=== PATIENT | female | born 1960 | race Caucasian/White ===

== ENCOUNTER → 2020-07-25 10:28 | Outpatient (BNVA) | payer OTHER, SELFPAY | PROVIDERS: PCP Internal Medicine; Visit Provider Surgery ==

== ENCOUNTER → 2020-08-29 08:05 | Outpatient (BNVA) | payer OTHER, SELFPAY | PROVIDERS: PCP Internal Medicine; Visit Provider Surgery ==

== ENCOUNTER 2020-09-05 14:30 | Outpatient (RCR) | payer OTHER, SELFPAY ==
--- NOTE | 2020-06-30 14:47 | P.CONTMS_ITS ---
History of Present Illness General Data Date of Service: 06/29/2020 Reason for consult: TMS EVAL REFERRED BY DR. FERREIRA FROM [facility] History of Present Illness THE PATIENT IS A 60-YEAR-OLD FEMALE WHO IS LIVING ALONE REFERRED BY DR. DAY [facility]NTO [facility] FOR TREATMENT RESISTANT DEPRESSION. PATIENT HAS LONG HISTORY OF CLINICAL DEPRESSION WAS RECENTLY HOSPITALIZED AT [facility] IN MAY FEELING INCREASINGLY DEPRESSED AND DISCOURAGED AFTER BEING TOLD SHE WAS NOT A CANDIDATE FOR DEEP TMS. THE PATIENT IS STATUS POST RIGHT TEMPORAL LOBECTOMY FOR HISTORY OF TREATMENT RESISTANT SEIZURE DISORDER MANY YEARS AGO THERE IS A LETTER FROM HER NEUROLOGIST WHO FEELS THERE IS NO SIGNIFICANT CONTRAINDICATION TO TMS PATIENT HAS BEEN SEIZURE-FREE FOR MANY YEARS. THE PATIENT SEES DR. DAY WANT SHE WAS RECENTLY TAPERED OFF OF MIRTAZAPINE AND STARTED ON LAMOTRIGINE FOR TREATMENT RESISTANT DEPRESSION. PATIENT STATUS POST LOBECTOMY HAS HAD MILD ATTENTIONAL PROBLEMS MILD MEMORY DIFFICULTIES. SHE SHE DENIES ACTIVE SUICIDAL INTENT. SHE DOES HAVE A GOOD SUPPORT SYSTEM AND HAS A REGULAR THERAPIST THAT SHE SEES. HER CURRENT MEDICATIONS INCLUDE DULOXETINE 120 MG DAILY SHE HAS FAILED A MIRTAZAPINE TRIAL WHICH IS NOW BEING DISCONTINUED SHE IS ON LAMOTRIGINE UP TO 75 MG DAILY. SHE DOES HAVE ONGOING ANXIETY SHE HAS FELT INCREASINGLY DISCOURAGED RECENTLY SHE LOST HER STEPMOTHER WITH WHOM SHE WAS QUITE CLOSE TO SHE RECENTLY HAD A WRIST FRACTURE. THE PATIENT HAS HAD ONGOING SYMPTOMS OF ANHEDONIA DEPRESSION LACK OF MOTIVATION LETHARGY HOPELESSNESS HELPLESSNESS WITH THOUGHTS AT TIMES THAT SHE WOULD BE BETTER OFF . SIGNIFIC ANTLY INTERFERES WITH HER LIFE AND FUNCTIONING. Past Psychiatric History/Medication Trials: PATIENT RECENTLY HOSPITALIZED AT [facility] SHE SEES DR. FERREIRA. HAS HAD TRIALS OF ABILIFY HAD TO GO OFF SECONDARY TO SIDE EFFECTS NAUSEA SHE HAS BEEN ON UP TO CYMBALTA 120 MG NOT CURRENTLY EFFECTIVE ON EFFEXOR POND MADE HER ANXIOUS AND AGITATED CITALOPRAM WAS EFFECTIVE IN THE PAST AT 60 MG EVENTUALLY STOPPED WORKING SERTRALINE LOST ITS EFFICACY AND FLUOXETINE ALSO EVENTUALLY LOST ITS EFFICACY. WELLBUTRIN ALSO CAUSED AGITATION. SHE HAS HAD PAST PSYCHIATRIC HOSPITALIZATIONS SHE IS CURRENTLY IN THERAPY. [facility] Medical History (Updated 06/30/20 @ 15:11 by Bayron Grady MD) Complex partial seizures Narrative: HER PCP IS JAMARCUS PANTOJA NURSE PRACTITIONER AT THE [facility] IN [place]. 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 NO REPORTED SEIZURE ACTIVITY HAS HAD INTERMITTENT MEMORY GAPS STATUS POST LOBECTOMY. PATIENT DOES HAVE ASTHMA. ADVERSE REACTIONS TO IBUPROFEN EFFEXOR TRAMADOL AND WELLBUTRIN. HISTORY OF PSEUDOTUMOR 1995 NOT REPORTEDLY DIAGNOSED WITH THIS CURRENTLY. SEE MEDICAL NOTE FROM THE [facility] STATING THEY FEEL TMS IS NOT CONTRAINDICATED IN THIS PATIENT. Narrative: TEMPORAL LOBECTOMY Family History: PATIENT'S FATHER WAS ALCOHOLIC AND DEPRESSED MOTHER ALCOHOLIC QUESTION OF BIPOLAR DISORDER A BROTHER WHO WAS ABUSIVE. Social History: PATIENT IS BUT FROM HER FOR MANY YEARS. SHE OBTAINED A SOCIAL WORK DEGREE FROM [employer] SHE HAS TO WORK FOR [employer] [place]. SHE HAS 2 ADOPTED SONS. SHE HAS A CLOSE GROUP OF FRIENDS AND A GOOD SUPPORT SYSTEM. NOT CURRENTLY DATING. Substance History: PAST HISTORY OF ALCOHOL ABUSE MANY YEARS AGO NO CURRENT ALCOHOL OR SUBSTANCE ABUSE TIMES YEARS Trauma History: THE HISTORY OF CHILDHOOD TRAUMA Meds/Allergies Meds Narrative: ADVERSE REACTIONS NOTED TO WELLBUTRIN ALL TRAM MOTRIN Allergies Allergies Allergy/AdvReac Type Severity Reaction Status Date / Time No Known Allergies Allergy Unverified 01/06/20 14:39 Mental Status Exam Mental Status Exam Narrative: THE PATIENT HAS A A PHQ-9 OF 18 THAT SHE DESCRIBES IT IS VERY DIFFICULT APPEARS TO BE UNDER RATING MANY FOR SYMPTOMS WHICH GIVEN HER RECENT HOSPITALIZATION. PATIENT'S SPEECH IS NORMAL IN RATE AND RHYTHM SHE GAVE PERMISSION FOR TELEHEALTH APPOINTMENT. HER MOOD WAS DEPRESSED HER AFFECT CONSTRICTED SHE WAS NOT AGITATED THOUGHT PROCESS WAS LINEAR GOAL-DIRECTED SHE WAS DISCOURAGED STATED SHE HAD BEEN DISTRAUGHT AFTER THE LOSS OF HER STEPMOTHER AND BEING TOLD SHE COULD HAVE DEEP TMS. HAVE PATIENT REPORTS INTERMITTENT SELF- HARMING THOUGHTS BUT DENIES CURRENT PLAN OR INTENT STATES SHE CAN MAINTAIN HER SAFETY AND DOES HAVE SOME FUTURE PLANS. SHE REPORTS LOW ENERGY DIFFICULTY WITH CONCENTRATION ATTENTION FUNCTIONING. NO HALLUCINATIONS OR DELUSIONAL MATERIAL GOOD INSIGHT Assessment & Plan Assessment & Plan (1) Major depressive disorder, recurrent severe without psychotic features: Status: Acute Code(s): F33.2 - Major depressive disorder, recurrent severe without psychotic features Recommendations: PATIENT DENIES ANY HISTORY OF MANIC SYMPTOMS NO CONTRAINDICATIONS TO TMS FAR NO METALLIC OBJECTS OUTSIDE OF A KNEE REPLACEMENT PAST HISTORY OF SOME COMPLEX SEIZURES STABLE TIMES YEARS NOTE APPRECIATED FROM THE [facility] ADVISING THAT PATIENT WOULD BE A GOOD CANDIDATE FOR LEFT-SIDED TMS THERE ARE ALSO STUDIES THAT LOW FREQUENCY TMS ON THE SIDE OF THE LESION CAN ACTUALLY DECREASE EPILEPTIFORM ACTIVITY. THE PATIENT MEETS CRITERIA BECAUSE OF MULTIPLE FAILED TRIALS INCLUDING ABILIFY DULOXETINE UP TO 120 MG MIRTAZAPINE UP TO 30 MG HAS HAD EXTENSIVE AND ONGOING PSYCHOTHERAPY AND MULTIPLE OTHER FAILED ANTIDEPRESSANT TRIALS. RISKS BENEFITS ALTERNATIVES REVIEWED WITH PATIENT I DID REVIEW WITH THE PATIENT SHE IS AT SOME INCREASED THE RADICAL RISK OF A SEIZURE WITH TMS LITERATURE REVIEWED WILL USE LEFT-SIDED PROTOCOL GIVEN THE PATIENT'S SEVERITY OF DEPRESSION HISTORY OF TREATMENT RESISTANCE TO MEDICATION SHE IS A CLEAR CANDIDATE AND DOES UNDERSTAND THE RISKS BENEFITS AND ALTERNATIVES Greater than 50% of the session was spent on counseling and/or coordination of care
--- NOTE | 2020-07-07 23:41 | P.PNPS_ITS ---
TMS Daily Progress Note Daily TMS Progress Note Date of Service: 07/07/20 Week #: 1 Treatment #(05-20): 2 PHQ-9 Pre-Treatment (05-17): 18 PHQ-9 Most Recent (05-17): 18 Reviewed: TMS Tech Note Reviewed Verification: I have reviewed the TMS Medical Records Specialist Note and agree with the contents. The patient remains a candidate to continue TMS treatment per pro tocol.
--- NOTE | 2020-07-10 22:30 | P.PNPS_ITS ---
TMS Daily Progress Note Daily TMS Progress Note Date of Service: 07/10/20 Week #: 1 Treatment #(05-20): 3 PHQ-9 Pre-Treatment (05-17): 18 PHQ-9 Most Recent (05-17): 18 Reviewed: TMS Tech Note Reviewed Verification: I have reviewed the TMS Medical Assistant Secretary Note and agree with the contents. The patient remains a candidate to continue TMS treatment per pro tocol.
--- NOTE | 2020-07-11 22:06 | P.PNPS_ITS ---
TMS Daily Progress Note Daily TMS Progress Note Date of Service: 07/11/20 Week #: 1 Treatment #(05-20): 4 PHQ-9 Pre-Treatment (05-17): 18 PHQ-9 Most Recent (05-17): 18 Reviewed: TMS Tech Note Reviewed Verification: I have reviewed the TMS Power Plant Operations Manager Note and agree with the contents. The patient remains a candidate to continue TMS treatment per pro tocol.
--- NOTE | 2020-07-11 22:38 | HO.TMSDAILY2 ---
TMS Daily Progress Note Daily TMS Progress Note Date of Service: 07/11/20 Week #: 1 Treatment #(05-20): 3 PHQ-9 Pre-Treatment (05-17): 18 PHQ-9 Most Recent (05-17): 18 Reviewed: TMS Tech Note Reviewed Verification: I have reviewed the TMS Continuous Loft Operator Note and agree with the contents. The patient remains a candidate to continue TMS treatment per protocol.
--- NOTE | 2020-07-13 22:05 | P.PNPS_ITS ---
TMS Daily Progress Note Daily TMS Progress Note Date of Service: 07/12/20 Week #: 1 Treatment #(05-20): 5 PHQ-9 Pre-Treatment (05-17): 18 PHQ-9 Most Recent (05-17): 18 Reviewed: TMS Tech Note Reviewed Verification: I have reviewed the TMS Pre Press Proofer Note and agree with the contents. The patient remains a candidate to continue TMS treatment per pro tocol.
--- NOTE | 2020-07-13 22:06 | P.PNPS_ITS ---
TMS Daily Progress Note Daily TMS Progress Note Date of Service: 07/13/20 Week #: 2 Treatment #(05-20): 6 PHQ-9 Pre-Treatment (05-17): 18 PHQ-9 Most Recent (05-17): 18 Reviewed: TMS Tech Note Reviewed Verification: I have reviewed the TMS Senior Field Engineer Note and agree with the contents. The patient remains a candidate to continue TMS treatment per pro tocol.
--- NOTE | 2020-07-14 21:50 | P.PNPS_ITS ---
TMS Daily Progress Note Daily TMS Progress Note Date of Service: 07/14/20 Week #: 7 Treatment #(05-20): 7 PHQ-9 Pre-Treatment (05-17): 18 PHQ-9 Most Recent (05-17): 18 Reviewed: TMS Tech Note Reviewed Verification: I have reviewed the TMS Occupational Safety Specialist Note and agree with the contents. The patient remains a candidate to continue TMS treatment per pro tocol.
--- NOTE | 2020-07-17 22:14 | P.PNPS_ITS ---
TMS Daily Progress Note Daily TMS Progress Note Date of Service: 07/17/20 Week #: 2 Treatment #(05-20): 8 PHQ-9 Pre-Treatment (05-17): 18 PHQ-9 Most Recent (05-17): 18 Reviewed: TMS Tech Note Reviewed Verification: I have reviewed the TMS Animal Pathology Teacher Note and agree with the contents. The patient remains a candidate to continue TMS treatment per pro tocol.
--- NOTE | 2020-07-18 22:15 | HO.TMSDAILY2 ---
TMS Daily Progress Note Daily TMS Progress Note Date of Service: 07/18/20 Week #: 2 Treatment #(05-20): 9 PHQ-9 Pre-Treatment (05-17): 18 PHQ-9 Most Recent (05-17): 18 Reviewed: TMS Tech Note Reviewed Verification: I have reviewed the TMS Framework Developer Note and agree with the contents. The patient remains a candidate to continue TMS treatment per protocol.
--- NOTE | 2020-07-19 22:46 | P.PNPS_ITS ---
TMS Daily Progress Note Daily TMS Progress Note Date of Service: 07/19/20 Week #: 2 Treatment #(05-20): 10 PHQ-9 Pre-Treatment (05-17): 18 PHQ-9 Most Recent (05-17): 18 Reviewed: TMS Tech Note Reviewed Verification: I have reviewed the TMS Pigment Making Supervisor Note and agree with the contents. The patient remains a candidate to continue TMS treatment per pr otocol.
--- NOTE | 2020-07-20 21:15 | P.PNPS_ITS ---
TMS Daily Progress Note Daily TMS Progress Note Date of Service: 07/20/20 Week #: 3 Treatment #(05-20): 11 PHQ-9 Pre-Treatment (05-17): 18 PHQ-9 Most Recent (05-17): 18 Reviewed: TMS Tech Note Reviewed Verification: I have reviewed the TMS Paper Tube Machine Operator Note and agree with the contents. The patient remains a candidate to continue TMS treatment per pr otocol.
--- NOTE | 2020-07-21 22:24 | HO.TMSDAILY2 ---
TMS Daily Progress Note Daily TMS Progress Note Date of Service: 07/21/20 Week #: 3 Treatment #(05-20): 12 PHQ-9 Pre-Treatment (05-17): 18 PHQ-9 Most Recent (05-17): 18 Reviewed: TMS Tech Note Reviewed Verification: I have reviewed the TMS Engineering And Development Director Note and agree with the contents. The patient remains a candidate to continue TMS treatment per protocol.
--- NOTE | 2020-07-24 21:05 | HO.TMSDAILY2 ---
TMS Daily Progress Note Daily TMS Progress Note Date of Service: 07/24/20 Week #: 3 Treatment #(05-20): 13 PHQ-9 Pre-Treatment (05-17): 18 PHQ-9 Most Recent (05-17): 18 Reviewed: TMS Tech Note Reviewed Verification: I have reviewed the TMS Tennis Camp Instructor Note and agree with the contents. The patient remains a candidate to continue TMS treatment per protocol.
--- NOTE | 2020-07-26 22:53 | P.PNPS_ITS ---
TMS Daily Progress Note Daily TMS Progress Note Date of Service: 07/26/20 Week #: 3 Treatment #(05-20): 15 PHQ-9 Pre-Treatment (05-17): 18 PHQ-9 Most Recent (05-17): 18 Reviewed: TMS Tech Note Reviewed Verification: I have reviewed the TMS Operator Maintainer Note and agree with the contents. The patient remains a candidate to continue TMS treatment per p mike.
--- NOTE | 2020-07-27 22:52 | P.PNPS_ITS ---
TMS Daily Progress Note Daily TMS Progress Note Date of Service: 07/27/20 Week #: 4 Treatment #(05-20): 16 PHQ-9 Pre-Treatment (05-17): 18 PHQ-9 Most Recent (05-17): 18 Reviewed: TMS Tech Note Reviewed Verification: I have reviewed the TMS Hazardous Materials Tanker Driver Note and agree with the contents. The patient remains a candidate to continue TMS treatment per pr otocol.
--- NOTE | 2020-07-28 10:03 | HO.TMSDAILY2 ---
TMS Daily Progress Note Daily TMS Progress Note Date of Service: 07/28/20 Week #: 4 Treatment #(05-20): 17 PHQ-9 Pre-Treatment (05-17): 18 PHQ-9 Most Recent (05-17): 18 Reviewed: TMS Tech Note Reviewed Verification: I have reviewed the TMS Countersinker Balance Screw Hole Note and agree with the contents. The patient remains a candidate to continue TMS treatment per protocol.
--- NOTE | 2020-07-31 21:36 | P.PNPS_ITS ---
TMS Daily Progress Note Daily TMS Progress Note Date of Service: 07/31/20 Week #: 4 Treatment #(05-20): 18 PHQ-9 Pre-Treatment (05-17): 18 PHQ-9 Most Recent (05-17): 18 Reviewed: TMS Tech Note Reviewed Verification: I have reviewed the TMS Supervisor Concrete Pipe Plant Note and agree with the contents. The patient remains a candidate to continue TMS treatment per p mike.
--- NOTE | 2020-08-01 22:01 | HO.TMSDAILY2 ---
TMS Daily Progress Note Daily TMS Progress Note Date of Service: 08/01/20 Week #: 4 Treatment #(05-20): 19 PHQ-9 Pre-Treatment (05-17): 18 PHQ-9 Most Recent (05-17): 18 Reviewed: TMS Tech Note Reviewed Verification: I have reviewed the TMS Technical Information Specialist Note and agree with the contents. The patient remains a candidate to continue TMS treatment per protocol.
--- NOTE | 2020-08-02 22:28 | P.PNPS_ITS ---
TMS Daily Progress Note Daily TMS Progress Note Date of Service: 08/02/20 Week #: 5 Treatment #(05-20): 20 PHQ-9 Pre-Treatment (05-17): 18 PHQ-9 Most Recent (05-17): 18 Reviewed: TMS Tech Note Reviewed Verification: I have reviewed the TMS Signal System Testing Maintainer Note and agree with the contents. The patient remains a candidate to continue TMS treatment per p mike.
--- NOTE | 2020-08-03 21:47 | HO.TMSDAILY2 ---
TMS Daily Progress Note Daily TMS Progress Note Date of Service: 08/03/20 Week #: 5 Treatment #(05-20): 21 PHQ-9 Pre-Treatment (05-17): 18 PHQ-9 Most Recent (05-17): 18 Reviewed: TMS Tech Note Reviewed Verification: I have reviewed the TMS Cook Cashier Food Prep Note and agree with the contents. The patient remains a candidate to continue TMS treatment per protocol.
--- NOTE | 2020-08-04 22:03 | HO.TMSDAILY2 ---
TMS Daily Progress Note Daily TMS Progress Note Date of Service: 08/04/20 Week #: 5 Treatment #(05-20): 22 PHQ-9 Pre-Treatment (05-17): 18 PHQ-9 Most Recent (05-17): 18 Reviewed: TMS Tech Note Reviewed Verification: I have reviewed the TMS Balance Assembler Note and agree with the contents. The patient remains a candidate to continue TMS treatment per protocol.
--- NOTE | 2020-08-08 15:25 | HO.TMSDAILY2 ---
TMS Daily Progress Note Daily TMS Progress Note Date of Service: 08/08/20 Week #: 5 Treatment #(05-20): 23 PHQ-9 Pre-Treatment (05-17): 18 PHQ-9 Most Recent (05-17): 18 Reviewed: TMS Tech Note Reviewed Verification: I have reviewed the TMS Biochemistry Technician Note and agree with the contents. The patient remains a candidate to continue TMS treatment per protocol.
--- NOTE | 2020-08-09 23:04 | HO.TMSDAILY2 ---
TMS Daily Progress Note Daily TMS Progress Note Date of Service: 08/09/20 Week #: 5 Treatment #(05-20): 24 PHQ-9 Pre-Treatment (05-17): 18 PHQ-9 Most Recent (05-17): 18 Reviewed: TMS Tech Note Reviewed Verification: I have reviewed the TMS Consulting Networking Engineer Note and agree with the contents. The patient remains a candidate to continue TMS treatment per protocol.
--- NOTE | 2020-08-10 23:12 | HO.TMSDAILY2 ---
TMS Daily Progress Note Daily TMS Progress Note Date of Service: 08/10/20 Week #: 5 Treatment #(05-20): 25 PHQ-9 Pre-Treatment (05-17): 18 PHQ-9 Most Recent (05-17): 18 Reviewed: TMS Tech Note Reviewed Verification: I have reviewed the TMS Paper Roll Machine Operator Note and agree with the contents. The patient remains a candidate to continue TMS treatment per protocol.
--- NOTE | 2020-08-21 22:34 | HO.TMSDAILY2 ---
TMS Daily Progress Note Daily TMS Progress Note Date of Service: 08/21/20 Week #: 6 Treatment #(05-20): 27 PHQ-9 Pre-Treatment (05-17): 18 PHQ-9 Most Recent (05-17): 18 Reviewed: TMS Tech Note Reviewed Verification: I have reviewed the TMS Biological Science Technician Note and agree with the contents. The patient remains a candidate to continue TMS treatment per protocol.
--- NOTE | 2020-08-22 22:35 | P.PNPS_ITS ---
TMS Daily Progress Note Daily TMS Progress Note Date of Service: 08/22/20 Week #: 6 Treatment #(05-20): 28 PHQ-9 Pre-Treatment (05-17): 18 PHQ-9 Most Recent (05-17): 18 Reviewed: TMS Tech Note Reviewed Verification: I have reviewed the TMS Manager Of Compensation Note and agree with the contents. The patient remains a candidate to continue TMS treatment per p mike.
--- NOTE | 2020-08-23 21:15 | HO.TMSDAILY2 ---
TMS Daily Progress Note Daily TMS Progress Note Date of Service: 08/23/20 Week #: 6 Treatment #(05-20): 29 PHQ-9 Pre-Treatment (05-17): 18 PHQ-9 Most Recent (05-17): 18 Reviewed: TMS Tech Note Reviewed Verification: I have reviewed the TMS Order Packer Or Packager Note and agree with the contents. The patient remains a candidate to continue TMS treatment per protocol.
--- NOTE | 2020-08-24 21:25 | HO.TMSDAILY2 ---
TMS Daily Progress Note Daily TMS Progress Note Date of Service: 08/24/20 Week #: 6 Treatment #(05-20): 30 PHQ-9 Pre-Treatment (05-17): 18 PHQ-9 Most Recent (05-17): 18 Reviewed: TMS Tech Note Reviewed Verification: I have reviewed the TMS Real Estate Financial Analyst Note and agree with the contents. The patient remains a candidate to continue TMS treatment per protocol.
--- NOTE | 2020-08-25 22:20 | HO.TMSDAILY2 ---
TMS Daily Progress Note Daily TMS Progress Note Date of Service: 08/25/20 Week #: 6 Treatment #(05-20): 31 PHQ-9 Pre-Treatment (05-17): 18 PHQ-9 Most Recent (05-17): 18 Reviewed: TMS Tech Note Reviewed Verification: I have reviewed the TMS Market Research Senior Project Manager Note and agree with the contents. The patient remains a candidate to continue TMS treatment per protocol.
--- NOTE | 2020-08-28 22:09 | HO.TMSDAILY2 ---
TMS Daily Progress Note Daily TMS Progress Note Date of Service: 08/28/20 Week #: 7 Treatment #(05-20): 32 PHQ-9 Pre-Treatment (05-17): 18 PHQ-9 Most Recent (05-17): 18 Reviewed: TMS Tech Note Reviewed Verification: I have reviewed the TMS Supervisor Kosher Dietary Service Note and agree with the contents. The patient remains a candidate to continue TMS treatment per protocol.
--- NOTE | 2020-08-29 22:01 | P.PNPS_ITS ---
TMS Daily Progress Note Daily TMS Progress Note Date of Service: 08/29/20 Week #: 7 Treatment #(05-20): 33 PHQ-9 Pre-Treatment (05-17): 18 PHQ-9 Most Recent (05-17): 18 Reviewed: TMS Tech Note Reviewed Verification: I have reviewed the TMS Certified Dental Assistant Note and agree with the contents. The patient remains a candidate to continue TMS treatment per p mike.
--- NOTE | 2020-08-29 22:03 | HO.TMSDAILY2 ---
TMS Daily Progress Note Daily TMS Progress Note Date of Service: 08/29/20 Week #: 7 Treatment #(05-20): 33 PHQ-9 Pre-Treatment (05-17): 18 PHQ-9 Most Recent (05-17): 18 Reviewed: TMS Tech Note Reviewed Verification: I have reviewed the TMS Media Planner / Buyer Note and agree with the contents. The patient remains a candidate to continue TMS treatment per protocol.
--- NOTE | 2020-08-31 21:40 | P.PNPS_ITS ---
TMS Daily Progress Note Daily TMS Progress Note Date of Service: 08/31/20 Week #: 8 Treatment #(05-20): 35 PHQ-9 Pre-Treatment (05-17): 18 PHQ-9 Most Recent (05-17): 18 Reviewed: TMS Tech Note Reviewed Verification: I have reviewed the TMS Desizing Machine Operator Note and agree with the contents. The patient remains a candidate to continue TMS treatment per p mike.
--- NOTE | 2020-09-05 22:47 | HO.TMSDAILY2 ---
TMS Daily Progress Note Daily TMS Progress Note Date of Service: 09/05/20 Week #: 8 Treatment #(05-20): 36 PHQ-9 Pre-Treatment (05-17): 18 PHQ-9 Most Recent (05-17): 18 Reviewed: TMS Tech Note Reviewed Verification: I have reviewed the TMS Stitcher Tape Controlled Machine Note and agree with the contents. The patient remains a candidate to continue TMS treatment per protocol.
== END 2020-09-05 15:05 | disposition home or self-care (01) ==
LOC: HO.PTMS 14:30
PROVIDERS: Visit Provider Psychiatry & Neurology Psychiatry
DX: F33.2 Major depressive disorder, recurrent severe without psychotic features (principal)
CPT/HCPCS: 90867; 90868

== ENCOUNTER → 2020-09-12 08:09 | Outpatient (BNVA) | payer OTHER, SELFPAY | PROVIDERS: PCP Internal Medicine; Visit Provider Dietitian, Registered | DX: E66.01 Morbid (severe) obesity due to excess calories (principal); Z68.41 Body mass index [BMI] 40.0-44.9, adult | CPT/HCPCS: 97802 ==

== ENCOUNTER 2022-02-19 13:05 | Inpatient (IN) | payer OTHER, SELFPAY ==
--- NOTE | 2022-02-19 | ECG_ITS ---
Test Reason : QT change Blood Pressure : / mmHG Vent. Rate : 089 BPM Atrial Rate : 089 BPM P-R Int : 154 ms QRS Dur : 088 ms QT Int : 378 ms P-R-T Axes : 035 009 015 degrees QTc Int : 459 ms Normal sinus rhythm Low voltage QRS Intra-ventricular conduction delay Nonspecific T wave abnormality Anterior leads Abnormal ECG No previous ECGs available Referred By: Meaghan New Electronically Signed By:ZBIGNIEW NOGUEIRA MD
[2022-02-19 13:07] VITALS: BP 111/69; PULSE 111; RESP 19; TEMP 36.6; O2SAT 99; BMI 38.7
--- NOTE | 2022-02-19 13:39 | ED.PSYCH ---
HPI - Psych General Chief Complaint: Psychiatric Symptoms Stated Complaint: mental health emergency Time Seen by Provider: 02/19/22 13:34 Source: patient Mode of arrival: ambulatory Limitations: no limitations History of Present Illness HPI Narrative: 62 yo female with hx of depression and HTN here with c/o worsening SI was seen at [facility] on voluntary basis this week and was a bed search but no beds available. Sent home as she was voluntary. She comes back with SI wanting to talk to our crisis team. MD complaint: suicidal ideation and feels depressed Onset (ago): week(s) Duration: getting worse History of same: Yes Relieving factors: none Exacerbating factors: none Context: other Associated psychiatric symptoms: depression and suicidal ideation Associated symptoms: denies other symptoms Treatments prior to arrival: none If self harm: admits thoughts of self harm Related Data Home Medications Medication Instructions Recorded Confirmed duloxetine 60 mg capsule,delayed 60 mg PO DAILY 07/25/20 08/29/20 release ergocalciferol (vitamin D2) 1,250 1,250 mcg PO Q2W 07/25/20 08/29/20 mcg (50,000 unit) capsule fluticasone propionate 220 2 puff PO BID 07/25/20 08/29/20 mcg/actuation HFA aerosol inhaler lamotrigine 100 mg tablet 0 mg PO 07/25/20 08/29/20 losartan 50 mg tablet 50 mg PO BID 07/25/20 08/29/20 montelukast 10 mg tablet 10 mg PO DAILY 07/25/20 08/29/20 omeprazole 20 mg capsule,delayed 20 mg PO DAILY 07/25/20 08/29/20 release pravastatin 40 mg tablet 40 mg PO DAILY 07/25/20 08/29/20 Allergies Allergy/AdvReac Type Severity Reaction Status Date / Time ibuprofen Allergy Severe Anaphylaxis Verified 02/19/22 13:11 prednisone Allergy Severe Anaphylaxis Verified 02/19/22 13:11 sertraline [From Zoloft] Allergy Severe Anaphylaxis Verified 02/19/22 13:11 tramadol Allergy Severe Anaphylaxis Verified 02/19/22 13:11 venlafaxine [From Effexor] Allergy Severe Anaphylaxis Verified 02/19/22 13:11 Review of Systems Review of Systems: Constitutional : No Fever, No Chills ENT/Mouth : No Ear Pain, No Nasal Congestion, No sore throat Eyes: No Eye Pain, No Swelling, No Redness Cardiovascular : No Chest Pain, No SOB Respiratory : No Cough, No Sputum, No Dyspnea Gastrointestinal : No Nausea, No Vomiting, No Diarrhea, No Hematochezia, No Melena Genitourinary : No Dysuria, No Urinary Frequency, No Hematuria Musculoskeletal : No Myalgias Skin : No Skin Lesions, No rash Neuro : No Weakness, No Numbness, No Paresthesias, No Dizziness, No Headache Psych : positive Anxiety, positive Depression, positive SI no HI Heme/Lymph: No Lymphadenopathy Endocrine : No Polyuria, No Polydipsia All other systems reviewed and are negative [facility] Past Medical History Attestation statement: The following information was validated with the patient. Medical History Asthma Diverticulosis HTN (hypertension) Hypercholesterolemia Major depressive disorder Vocal cord dysfunction Surgical History H/O brain surgery History of biopsy of temporal artery History of colostomy History of colostomy reversal History of rectal surgery History of tonsillectomy History of total hysterectomy Hx of colonoscopy Family History Family History Mother No problems noted. Father No problems noted. Sister No problems noted. Sister No problems noted. Brother No problems noted. Social History Social History (Updated 02/19/22 @ 13:39 by Meaghan New DO) Alcohol intake: former Patient Tobacco Use Status: Never used Tobacco Advance Directives: No Physical Exam Vital Signs: Vital Signs: Last Vital Signs Temp 98 F 02/19/22 13:07 Pulse 111 H 02/19/22 13:07 Resp 19 02/19/22 13:07 BP 111/69 02/19/22 13:07 Pulse Ox 99 02/19/22 13:07 O2 Del Method 02/19/22 13:07 BMI result Body Mass Index 38.7 Appearance: Alert. Oriented X3. No acute distress. Eyes: Pupils equal, round and reactive to light. ENT: Pharynx normal. Neck: Normal inspection. Neck supple. CVS: Normal heart rate and rhythm. Pulses normal. Respiratory: No respiratory distress. Breath sounds normal. Abdomen: Soft and nontender. Skin: Skin warm and dry. Normal skin color. Normal skin turgor. Extremities: No lower extremity edema. No calf ttp Neuro: Oriented X 3. No motor deficit. No sensory deficit. CN2-12 intact Course Course Course Narrative: Physician observation started at 155pm. Patient placed in physician observation because the patient needed more time for CARE team to assess the need for psych admission. At the time observation was started the patient's vitals were stable, patient is alert and oriented, Neuro: nonfocal, CV RRR, Lungs clear MDM - Psych MDM Narrative Medical decision making narrative: 62 yo female with depression and HTN here with c/o SI wants to talk to crisis at tis time will need labs and CARE team. No medical complaints Lab Data Result diagrams: 02/19/22 13:54 02/19/22 13:54 Labs: Lab Results 02/19/22 02/19/22 02/19/22 Range/Units 13:54 13:54 13:54 WBC 6.3 (4.8-10.8) X10*3/uL RBC 4.62 (4.20-5.50) X10*6/uL Hgb 13.4 (12.0-16.0) g/dl Hct 39.8 (37.0-47.0) % MCV 86.1 (80.0-98.0) fL MCH 29.0 (27.0-33.0) pg MCHC 33.7 (31.0-35.0) g/dl RDW 13.2 (11.0-16.0) % Plt Count 264 (160-400) X10*3/uL MPV 8.6 L (9.4-12.3) fL Immature Gran % (Auto) 0.5 H (0.0-0.4) % Neut % (Auto) 68.3 (45-73) % Lymph % (Auto) 22.8 (20-40) % [place] % (Auto) 7.1 (2-11) % Eos % (Auto) 1.0 (0-4) % Baso % (Auto) 0.3 (0-2) % Lymph # (Auto) 1.4 (1.2-4.9) X10*3/uL [place] # (Auto) 0.5 (0.1-1.2) X10*3/uL Eos # (Auto) 0.1 (0.0-0.4) X10*3/uL Baso # (Auto) 0.0 (0.0-0.2) X10*3/uL Abs Immat Gran (auto) 0.03 (0.00-0.03) X10*3/uL Absolute Neuts (auto) 4.3 (2.0-8.3) x10*3/uL Absolute Nucleated RBC 0.000 (0.0-0.012) X10*3/uL Nucleated RBC % (auto) 0.0 (0.0-0.2) /100WBC Sodium 141 (135-145) mmol/L Potassium 3.9 (3.3-5.1) mmol/L Chloride 102 (96-108) mmol/L Carbon Dioxide 27 (22-29) mmol/L Anion Gap 16 (12-20) BUN 11 (9-16) mg/dL Creatinine 0.82 (0.5-1.4) mg/dL Estim Creat Clear Calc 70.0 Estimated GFR > 60 Random Glucose 135 H (60-115) mg/dL Calcium 9.5 (8.4-10.2) mg/dL Total Bilirubin 1.2 H (0.0-1.0) mg/dL Direct Bilirubin 0.4 (0.0-0.5) mg/dL AST 13 (5-31) U/L ALT 12 (0-31) U/L Alkaline Phosphatase 55 (39-117) U/L Total Protein 6.7 (6.5-8.0) g/dL Albumin 4.3 (3.5-5.0) g/dL Urine Color Urine Appearance Urine pH (5.0-9.0) Ur Specific [place] (1.005-1.025) Urine Protein (Neg-Trace) mg/dL Urine Glucose (UA) (Negative) mg/dL Urine Ketones (Negative) mg/dL Urine Blood (Negative) Urine Nitrite (Negative) Ur Leukocyte Esterase (Negative) Urine Opiates Screen (Not Detect) Urine Fentanyl Screen (Not Detect) Ur Barbiturates Screen (Not Detect) Ur Phencyclidine Scrn (Not Detect) Ur Amphetamines Screen (Not Detect) U Benzodiazepines Scrn (Not Detect) Urine Cocaine Screen (Not Detect) U Marijuana (THC) Screen (Not Detect) COVID-19 (GABRIEL) Negative (Negative) COVID-19 Clin Com See Note 02/19/22 02/19/22 Range/Units 13:54 13:54 WBC (4.8-10.8) X10*3/uL RBC (4.20-5.50) X10*6/uL Hgb (12.0-16.0) g/dl Hct (37.0-47.0) % MCV (80.0-98.0) fL MCH (27.0-33.0) pg MCHC (31.0-35.0) g/dl RDW (11.0-16.0) % Plt Count (160-400) X10*3/uL MPV (9.4-12.3) fL Immature Gran % (Auto) (0.0-0.4) % Neut % (Auto) (45-73) % Lymph % (Auto) (20-40) % [place] % (Auto) (2-11) % Eos % (Auto) (0-4) % Baso % (Auto) (0-2) % Lymph # (Auto) (1.2-4.9) X10*3/uL [place] # (Auto) (0.1-1.2) X10*3/uL Eos # (Auto) (0.0-0.4) X10*3/uL Baso # (Auto) (0.0-0.2) X10*3/uL Abs Immat Gran (auto) (0.00-0.03) X10*3/uL Absolute Neuts (auto) (2.0-8.3) x10*3/uL Absolute Nucleated RBC (0.0-0.012) X10*3/uL Nucleated RBC % (auto) (0.0-0.2) /100WBC Sodium (135-145) mmol/L Potassium (3.3-5.1) mmol/L Chloride (96-108) mmol/L Carbon Dioxide (22-29) mmol/L Anion Gap (12-20) BUN (9-16) mg/dL Creatinine (0.5-1.4) mg/dL Estim Creat Clear Calc Estimated GFR Random Glucose (60-115) mg/dL Calcium (8.4-10.2) mg/dL Total Bilirubin (0.0-1.0) mg/dL Direct Bilirubin (0.0-0.5) mg/dL AST (5-31) U/L ALT (0-31) U/L Alkaline Phosphatase (39-117) U/L Total Protein (6.5-8.0) g/dL Albumin (3.5-5.0) g/dL Urine Color Yellow Urine Appearance Clear Urine pH 7.5 (5.0-9.0) Ur Specific [place] <= 1.005 (1.005-1.025) Urine Protein Negative (Neg-Trace) mg/dL Urine Glucose (UA) Negative (Negative) mg/dL Urine Ketones Negative (Negative) mg/dL Urine Blood Negative (Negative) Urine Nitrite Negative (Negative) Ur Leukocyte Esterase Negative (Negative) Urine Opiates Screen Not Detected (Not Detect) Urine Fentanyl Screen Not Detected (Not Detect) Ur Barbiturates Screen Not Detected (Not Detect) Ur Phencyclidine Scrn Not Detected (Not Detect) Ur Amphetamines Screen Not Detected (Not Detect) U Benzodiazepines Scrn Not Detected (Not Detect) Urine Cocaine Screen Not Detected (Not Detect) U Marijuana (THC) Screen Not Detected (Not Detect) COVID-19 (GABRIEL) (Negative) COVID-19 Clin Com Discharge Plan Discharge Clinical Impression: Depression Patient Disposition: Still a Patient Prescriptions: No Action Flovent HFA 220 mcg/actuation HFA aerosol inhaler 2 puff PO BID lamotrigine 100 mg tablet 0 mg PO ergocalciferol (vitamin D2) 1,250 mcg (50,000 unit) capsule 1,250 mcg PO Q2W duloxetine 60 mg capsule,delayed release(DR/EC) 60 mg PO DAILY montelukast 10 mg tablet 10 mg PO DAILY omeprazole 20 mg capsule,delayed release(DR/EC) 20 mg PO DAILY pravastatin 40 mg tablet 40 mg PO DAILY losartan 50 mg tablet 50 mg PO BID
[2022-02-19 13:58] LABS: MANUAL DIFF FLAG NO
[2022-02-19 14:00] LABS: Basophils Percent Auto 0.3 % (0-2); Eosinophils Absolute Auto 0.1 X10*3/uL (0.0-0.4); Hematocrit 39.8 % (37.0-47.0); Hemoglobin 13.4 g/dl (12.0-16.0); Imm Gran Abs Auto 0.03 X10*3/uL (0.00-0.03); Imm Gran Pct Auto 0.5 % (0.0-0.4); Lymphocytes Absolute Auto 1.4 X10*3/uL (1.2-4.9); Lymphocytes Percent Auto 22.8 % (20-40); Mean Corpuscular HGB Conc 33.7 g/dl (31.0-35.0); Mean Corpuscular Volume 86.1 fL (80.0-98.0); Mean Platelet Volume 8.6 fL (9.4-12.3); Monocytes Absolute Auto 0.5 X10*3/uL (0.1-1.2); Monocytes Percent Auto 7.1 % (2-11); Neutrophils Absolute Auto 4.3 x10*3/uL (2.0-8.3); Neutrophils Percent Auto 68.3 % (45-73); Platelet Count 264 X10*3/uL (160-400); Red Blood Count 4.62 X10*6/uL (4.20-5.50); Red Cell Distribution Width 13.2 % (11.0-16.0); White Blood Count 6.3 X10*3/uL (4.8-10.8)
[2022-02-19 14:02] LABS: Appearance Urine Clear; Color Urine Yellow; Glucose Urine UA Negative (Negative); Leukocyte Esterase Urine Negative (Negative); Nitrite Urine Negative (Negative); PH 7.5 (5.0-9.0); Specific Gravity - Urine <= 1.005 (1.005-1.025); Urine Blood Negative (Negative); Urine Ketones Negative (Negative); Urine Protein Negative (Neg-Trace)
[2022-02-19 14:17] LABS: Alanine Aminotransferase 12 U/L (0-31); Albumin Level 4.3 g/dL (3.5-5.0); Alkaline Phosphatase 55 U/L (39-117); Amphetamine Screen Urine Not Detected (Not Detect); Anion Gap 16 (12-20); Aspartate Amino Transferase 13 U/L (5-31); Barbiturates, Urine Not Detected (Not Detect); Benzodiazepines Screen Urine Not Detected (Not Detect); Bilirubin Direct 0.4 mg/dL (0.0-0.5); Bilirubin Total 1.2 mg/dL (0.0-1.0); Blood Urea Nitrogen 11 mg/dL (9-16); Calcium 9.5 mg/dL (8.4-10.2); Cannabinoid Screen Urine Not Detected (Not Detect); Chloride 102 mmol/L (96-108); Cocaine Screen Urine Not Detected (Not Detect); Estimated Glomerular Filt Rate > 60; Fentanyl, urine Not Detected (Not Detect); Glucose Random 135 mg/dL (60-115); Opiate Screen Urine Not Detected (Not Detect); Phencyclidine Screen Urine Not Detected (Not Detect); Potassium 3.9 mmol/L (3.3-5.1); Sodium 141 mmol/L (135-145); Total Protein 6.7 g/dL (6.5-8.0)
[2022-02-19 14:18] LABS: COVID-19 Test Negative (Negative); IDNOW Serial# 9DB6401D
[2022-02-19 14:28] LABS: Carbon Dioxide 27 mmol/L (22-29)
--- NOTE | 2022-02-19 16:56 | PC.NURSE ---
RN-RN report called in to [facility].
--- NOTE | 2022-02-19 17:18 | PHA.MEDREC ---
Pharmacy Consult ? Medication Reconciliation Pharmacy has completed the medication reconciliation. Patient confirmed all medications. Reports she no longer takes her inhalers. Patient no longer on lamotrigene and Ingrezza. Mellissa Brice, PharmD
[2022-02-19 18:00] VITALS: BP 111/65; PULSE 104; RESP 20; TEMP 36.4; O2SAT 99
--- NOTE | 2022-02-19 18:49 | PC.ADMIT ---
Nursing admission note: 62 year old female DX: Major depressive disorder, recurrent, severe, w/o psychotic feature. Referred for admission by CARE team. Self presented to [facility] for worsening symptoms of depression and anxiety over the past month. Signed conditional voluntary for admission. Patient engages easily, reports depressed mood with passive suicidal ideation. States I don't want to live but I have no intent to kill myself . Affect congruent. Good eye contact, dressed in hospital attire. One previous suicide attempt by overdose in September 2020 per crisis eval. History of 3 previous hospital admissions. Thoughts clear, linear and organized. Denies perceptual disturbances, no overt psychosis or expressed delusions. Reports sleep is restless. History of sleep apnea although currently does not use CPAP or BiPAP. Reports weight loss of better than 20lbs in past 6 months due to decreased appetite. History of drug and alcohol use, reports no use in better than a decade . I am an alcoholic . History of AA. TOX screen negative. No acute medical problems, history of asthma. Allergy to IBU, Prednisone, Sertraline, Tramadol and Venlafaxine. Reports goal for admission is to feel better . Patient oriented to unit, signed MAYITO. Placed on unit safety checks. See nursing assessment, crisis evaluation for further details.
[2022-02-19 19:25] VITALS: BMI 38.0
[2022-02-19 20:00] VITALS: BP 94/59; PULSE 105; RESP 18; TEMP 36.5; O2SAT 97
[2022-02-19] MEDS: traZODone HCL 50 MG TABLET PO (20:33)
[2022-02-19] MEDS: QUEtiapine Fumarate 100 MG TABLET PO (20:33)
[2022-02-19] MEDS: LORazepam 1 MG TABLET PO (20:33)
[2022-02-20 06:00] VITALS: BP 112/68; PULSE 94; RESP 18; TEMP 36.7; O2SAT 96
[2022-02-20] MEDS: Omeprazole 40 MG CAPSULE.DR PO (06:24)
[2022-02-20] MEDS: LORazepam 1 MG TABLET PO ×3 (09:31→23:27)
[2022-02-20] MEDS: Pravastatin Sodium 80 MG TABLET PO (09:31)
[2022-02-20] MEDS: QUEtiapine Fumarate 100 MG TABLET PO ×2 (09:31→23:27)
[2022-02-20] MEDS: Losartan Potassium 50 MG TABLET 100 MG PO (09:31)
[2022-02-20] MEDS: Vortioxetine Hydrobromide 20 MG TABLET PO (09:31)
[2022-02-20] MEDS: Montelukast Sodium 10 MG TABLET PO (09:31)
[2022-02-20] MEDS: amLODIPine Besylate 5 MG TABLET PO (09:31)
[2022-02-20] MEDS: hydroCHLOROthiazide 25 MG TABLET PO (09:31)
[2022-02-20 10:02] LABS: Alanine Aminotransferase 11 U/L (0-31); Albumin Level 4.2 g/dL (3.5-5.0); Alkaline Phosphatase 48 U/L (39-117); Anion Gap 12 (12-20); Aspartate Amino Transferase 10 U/L (5-31); Bilirubin Total 0.8 mg/dL (0.0-1.0); Blood Urea Nitrogen 15 mg/dL (9-16); Calcium 9.7 mg/dL (8.4-10.2); Carbon Dioxide 31 mmol/L (22-29); Chloride 100 mmol/L (96-108); Cholesterol 231 mg/dL; Creatinine Clr Calc Pharmacy 69.4; Estimated Glomerular Filt Rate > 60; Glucose Fasting 112 mg/dL (60-99); HDL Cholesterol 67 mg/dL; LDL Cholesterol Calculated 147 mg/dl; Potassium 4.1 mmol/L (3.3-5.1); Sodium 139 mmol/L (135-145); Total Protein 6.4 g/dL (6.5-8.0); Triglycerides 89 mg/dL
[2022-02-20] MEDS: Methylphenidate HCl 5 MG TABLET PO (13:19)
--- NOTE | 2022-02-20 17:30 | PC.NURSE ---
Patient submitted 3 day notice.
--- NOTE | 2022-02-20 17:40 | P.HPPS_ITS ---
HPI Date of Service: 02/20/22 Chief Complaint: suicidal ideation HPI Narrative: pt self-presented to ED c/o depression with SI over the past month. she reported passive SI to crisis staff. she stated that she had been living in a congregate living arrangement from 11/2020 until 01/18/2022 and that since leaving she has been experiencing depression and now SI. she was forcecd to move out for financial reasons. she has been experiencing sleep/wake cycle disturbance, hyperphagia, anergy and amotivation, poor concentration, anhedonia. she had a substantial suicide attempt via overdose on her prescribed medications, with low rescue factor, and she ended up in the ICU for some time and then had a psych admission at [facility]. when she discharged from there she entered the congregate romario ing environment which she apparently found quite helpful for her mental health. after she moved out she began to decompensate severely. she reported she has tried ketamine IV, which was not helpful. she is planning on a course of intranasal ketamine soon. she did TMS at [facility] last spring with some benefit. she has not tried ECT. she reports trials on numerous SSRIs and SNRIs, as well as seroquel currently and lamictal in the recent past. also TCAs. she does not believe she has tried an MAOI; she was provided patient medication education by nursing staff for MAOIs today at MD request. stimulants were also discussed as the most powerful mood-elevating agents at our disposal. she agreed to trial of methylphenidate 5 mg NOW. discussed that if she were to decide to do the MAOI she would need to have a 2 week washout period for her trintellix, for one. she reports solitude and lack of social structure as the most problematic aspects of her life and the best aspects of [place] ([facility] community where she lived over the past year). will engage SW to [facility] activities which may supply such needs with less cost than [facility]. Past Psychiatric History: h/o 3 prior psych hosps. no h/o SIB h/o one SA, september 2020, via overdose, low rescue factor. h/o TMS at [facility] spring 2020. outpt Tx intermittently for 40 years. Medical Evaluation Reviewed: Yes [facility] Medical History Asthma Diverticulosis HTN (hypertension) Hypercholesterolemia Major depressive disorder Vocal cord dysfunction Surgical History H/O brain surgery History of biopsy of temporal artery History of colostomy History of colostomy reversal History of rectal surgery History of tonsillectomy History of total hysterectomy Hx of colonoscopy Family History: PATIENT'S FATHER WAS ALCOHOLIC, MOTHER ALCOHOLIC and depression. QUESTION OF BIPOLAR DISORDER A BROTHER WHO WAS ABUSIVE. Social History: PATIENT IS BUT FROM HER FOR MANY YEARS. SHE OBTAINED A SOCIAL WORK DEGREE FROM [employer] SHE HAS TO WORK FOR [employer] IN [employer]. SHE HAS 2 ADOPTED SONS, 21 and 23 yo currently. SHE HAS A CLOSE GROUP OF FRIENDS AND A GOOD SUPPORT SYSTEM. NOT CURRENTLY DATING. she lives in the home with her estranged and they cohabit as friends. Substance History: h/o alcohol use disorder, sober for 20 yrs. h/o AA attendance. Trauma History: THE HISTORY OF CHILDHOOD TRAUMA Diagnostics Vital Signs (24Hr): Vital Signs - 24 hr 02/19/22 18:00 02/19/22 20:00 02/20/22 06:00 Temperature 97.6 F 97.7 F 98.0 F Pulse Rate 104 H 105 H 94 Respiratory Rate 20 18 18 Blood Pressure 111/65 94/59 L 112/68 Pulse Oximetry 99 97 96 Oxygen Delivery Method Room Air Room Air Room Air BMI result Body Mass Index 38.0 Labs Results: 02/19/22 13:54 02/20/22 08:56 Labs: Laboratory Results - last 48 hr 02/19/22 02/19/22 02/19/22 13:54 13:54 13:54 WBC 6.3 RBC 4.62 Hgb 13.4 Hct 39.8 MCV 86.1 MCH 29.0 MCHC 33.7 RDW 13.2 Plt Count 264 MPV 8.6 L Immature Gran % (Auto) 0.5 H Neut % (Auto) 68.3 Lymph % (Auto) 22.8 [place] % (Auto) 7.1 Eos % (Auto) 1.0 Baso % (Auto) 0.3 Lymph # (Auto) 1.4 [place] # (Auto) 0.5 Eos # (Auto) 0.1 Baso # (Auto) 0.0 Abs Immat Gran (auto) 0.03 Absolute Neuts (auto) 4.3 Absolute Nucleated RBC 0.000 Nucleated RBC % (auto) 0.0 Sodium 141 Potassium 3.9 Chloride 102 Carbon Dioxide 27 Anion Gap 16 BUN 11 Creatinine 0.82 Estim Creat Clear Calc 70.0 Estimated GFR > 60 Random Glucose 135 H Fasting Glucose Calcium 9.5 Total Bilirubin 1.2 H Direct Bilirubin 0.4 AST 13 ALT 12 Alkaline Phosphatase 55 Total Protein 6.7 Albumin 4.3 Triglycerides Cholesterol LDL Cholesterol, Calc HDL Cholesterol Urine Color Urine Appearance Urine pH Ur Specific [place] Urine Protein Urine Glucose (UA) Urine Ketones Urine Blood Urine Nitrite Ur Leukocyte Esterase Urine Opiates Screen Urine Fentanyl Screen Ur Barbiturates Screen Ur Phencyclidine Scrn Ur Amphetamines Screen U Benzodiazepines Scrn Urine Cocaine Screen U Marijuana (THC) Screen COVID-19 (GABRIEL) Negative COVID-[employer] See Note 02/19/22 02/19/22 02/20/22 13:54 13:54 08:56 WBC RBC Hgb Hct MCV MCH MCHC RDW Plt Count MPV Immature Gran % (Auto) Neut % (Auto) Lymph % (Auto) [place] % (Auto) Eos % (Auto) Baso % (Auto) Lymph # (Auto) [place] # (Auto) Eos # (Auto) Baso # (Auto) Abs Immat Gran (auto) Absolute Neuts (auto) Absolute Nucleated RBC Nucleated RBC % (auto) Sodium 139 Potassium 4.1 Chloride 100 Carbon Dioxide 31 H Anion Gap 12 BUN 15 Creatinine 0.82 Estim Creat Clear Calc 69.4 Estimated GFR > 60 Random Glucose Fasting Glucose 112 H Calcium 9.7 Total Bilirubin 0.8 Direct Bilirubin AST 10 ALT 11 Alkaline Phosphatase 48 Total Protein 6.4 L Albumin 4.2 Triglycerides 89 Cholesterol 231 LDL Cholesterol, Calc 147 HDL Cholesterol 67 Urine Color Yellow Urine Appearance Clear Urine pH 7.5 Ur Specific [place] <= 1.005 Urine Protein Negative Urine Glucose (UA) Negative Urine Ketones Negative Urine Blood Negative Urine Nitrite Negative Ur Leukocyte Esterase Negative Urine Opiates Screen Not Detected Urine Fentanyl Screen Not Detected Ur Barbiturates Screen Not Detected Ur Phencyclidine Scrn Not Detected Ur Amphetamines Screen Not Detected U Benzodiazepines Scrn Not Detected Urine Cocaine Screen Not Detected U Marijuana (THC) Screen Not Detected COVID-19 (GABRIEL) COVID-19 [employer] Meds/Allergies Meds Home Medications Medication Instructions Recorded Confirmed Type montelukast 10 mg tablet 10 mg PO DAILY 07/25/20 02/19/22 History amlodipine 5 mg tablet 1 tab PO DAILY 02/19/22 02/19/22 History hydrochlorothiazide 25 mg tablet 1 tab PO DAILY 02/19/22 02/19/22 History lorazepam 1 mg tablet 1 tab PO TID 02/19/22 02/19/22 History losartan 100 mg tablet 1 tab PO DAILY 02/19/22 02/19/22 History omeprazole 40 mg capsule,delayed 1 cap PO DAILY 02/19/22 02/19/22 History release pravastatin 80 mg tablet 1 tab PO DAILY 02/19/22 02/19/22 History quetiapine 100 mg tablet 1 tab PO BID 02/19/22 02/19/22 History vortioxetine 20 mg tablet 1 tab PO DAILY 02/19/22 02/19/22 History (Trintellix) Allergies Allergies Allergy/AdvReac Type Severity Reaction Status Date / Time ibuprofen Allergy Severe Anaphylaxis Verified 02/19/22 13:11 prednisone Allergy Severe Anaphylaxis Verified 02/19/22 13:11 sertraline [From Zoloft] Allergy Severe Anaphylaxis Verified 02/19/22 13:11 tramadol Allergy Severe Anaphylaxis Verified 02/19/22 13:11 venlafaxine [From Effexor] Allergy Severe Anaphylaxis Verified 02/19/22 13:11 Mental Status Exam Mental Status Exam Narrative: adequately dressed and groomed. cooperative, general PMR, perhaps. speech nml rate, amount, loudness, latency. decreased tone. thoughts linear and logical. affect constricted, hypo-intense, non-labile. mood depressed and anxious. passive SI. no HI/AVH. Assessment & Plan Assessment & Plan (1) Major depressive disorder, recurrent severe without psychotic features: Status: Acute Code(s): F33.2 - Major depressive disorder, recurrent severe without psychotic features Plan trial of stimulant. asking for D/C friday. T/C MAOI rachael - carolyn. T/C ECT. Patient educated on: medication risk/benefits and ECT Reason for continued inpatient stay Substantial Risk for: harm to self
[2022-02-21 07:00] VITALS: BMI 37.8
[2022-02-21 08:45] VITALS: BP 114/68; PULSE 93; RESP 18; TEMP 36.2; O2SAT 97
[2022-02-21] MEDS: Losartan Potassium 50 MG TABLET 100 MG PO (08:52)
[2022-02-21] MEDS: QUEtiapine Fumarate 100 MG TABLET PO ×2 (08:53→21:20)
[2022-02-21] MEDS: LORazepam 1 MG TABLET PO ×3 (08:54→21:20)
[2022-02-21] MEDS: Montelukast Sodium 10 MG TABLET PO (08:54)
[2022-02-21] MEDS: hydroCHLOROthiazide 25 MG TABLET PO (08:54)
[2022-02-21] MEDS: amLODIPine Besylate 5 MG TABLET PO (08:55)
[2022-02-21] MEDS: Pravastatin Sodium 80 MG TABLET PO (08:55)
[2022-02-21] MEDS: Omeprazole 40 MG CAPSULE.DR PO (08:55)
[2022-02-21] MEDS: Vortioxetine Hydrobromide 20 MG TABLET PO (08:55)
[2022-02-21] MEDS: Methylphenidate HCl 5 MG TABLET PO (11:45)
--- NOTE | 2022-02-21 15:28 | HO.PSYCHPN ---
Subjective Subjective Date of Service: 02/21/22 Reason For Visit: suicidal ideation Interim History: calm, cooperative. feeling kind of flat, but no anxiety today. reports yesterday after methylphenidate she was talkative and notably not depressed. she plans to discharge tomorrow to outpt care and would like to continue trial of stimulant. no problematic side effects. per staff, c/o dep/anx. easily engaged. interestedin PHP. attending to ADLs. Mental Status Exam Mental Status Exam Narrative: adequately dressed and groomed. cooperative, general PMR, perhaps. speech nml rate, amount, loudness, latency. decreased tone. thoughts linear and logical. affect constricted, hypo-intense, non-labile. mood kind of flat, but no anxiety. no SI/HI/AVH expressed. Diagnostics Vital Signs (24Hr): Vital Signs - 24 hr 02/21/22 08:45 Temperature 97.1 F Pulse Rate 93 Respiratory Rate 18 Blood Pressure 114/68 Pulse Oximetry 97 Oxygen Delivery Method Room Air BMI result Body Mass Index 37.8 Labs Results: 02/19/22 13:54 02/20/22 08:56 Labs: Laboratory Results - last 48 hr 02/20/22 08:56 Sodium 139 Potassium 4.1 Chloride 100 Carbon Dioxide 31 H Anion Gap 12 BUN 15 Creatinine 0.82 Estim Creat Clear Calc 69.4 Estimated GFR > 60 Fasting Glucose 112 H Calcium 9.7 Total Bilirubin 0.8 AST 10 ALT 11 Alkaline Phosphatase 48 Total Protein 6.4 L Albumin 4.2 Triglycerides 89 Cholesterol 231 LDL Cholesterol, Calc 147 HDL Cholesterol 67 Medications Medications Current Medications Acetaminophen (Acetaminophen 325 Mg Tablet) 650 mg PO Q6H PRN PRN Reason: Headache/Pain Mild Scale (1-3) Al Hydroxide/Mg Hydroxide (Magnesium Hydrox/Alum Hydrox 30 Ml Oral.Susp) 30 ml PO Q6H PRN PRN Reason: Heartburn/Nausea Amlodipine Besylate (Amlodipine Besylate 5 Mg Tablet) 5 mg PO DAILY MATTHEW; Protocol Last Admin: 02/21/22 08:55 Dose: 5 mg Hydrochlorothiazide (Hydrochlorothiazide 25 Mg Tablet) 25 mg PO DAILY MATTHEW; Protocol Last Admin: 02/21/22 08:54 Dose: 25 mg Hydroxyzine HCl (Hydroxyzine Hcl 25 Mg Tablet) 25 mg PO Q6H PRN PRN Reason: Anxiety Lorazepam (Lorazepam 1 Mg Tablet) 1 mg PO TID MATTHEW Last Admin: 02/21/22 14:45 Dose: 1 mg Losartan Potassium (Losartan Potassium 50 Mg Tablet) 100 mg PO DAILY [facility]; Protocol Last Admin: 02/21/22 08:52 Dose: 100 mg Magnesium Hydroxide (Milk Of Magnesia 30 Ml Oral.Susp) 30 ml PO DAILY PRN PRN Reason: Constipation Methylphenidate HCl (Methylphenidate Hcl 5 Mg Tablet) 5 mg PO DAILY [facility] Last Admin: 02/21/22 11:45 Dose: 5 mg Montelukast Sodium (Montelukast Sodium 10 Mg Tablet) 10 mg PO DAILY [facility] Last Admin: 02/21/22 08:54 Dose: 10 mg Omeprazole (Omeprazole 40 Mg Capsule.Dr) 40 mg PO DAILY@0630 [facility] Last Admin: 02/21/22 08:55 Dose: 40 mg Pravastatin Sodium (Pravastatin Sodium 80 Mg Tablet) 80 mg PO DAILY [facility] Last Admin: 02/21/22 08:55 Dose: 80 mg Quetiapine Fumarate (Quetiapine Fumarate 100 Mg Tablet) 100 mg PO BID [facility] Last Admin: 02/21/22 08:53 Dose: 100 mg Trazodone HCl (Trazodone Hcl 50 Mg Tablet) 50 mg PO BEDTIME PRN PRN Reason: Insomnia Last Admin: 02/19/22 20:33 Dose: 50 mg Vortioxetine (Vortioxetine Hydrobromide 20 Mg Tablet) 20 mg PO DAILY [facility] Last Admin: 02/21/22 08:55 Dose: 20 mg Allergies Allergies Allergy/AdvReac Type Severity Reaction Status Date / Time ibuprofen Allergy Severe Anaphylaxis Verified 02/19/22 13:11 prednisone Allergy Severe Anaphylaxis Verified 02/19/22 13:11 sertraline [From Zoloft] Allergy Severe Anaphylaxis Verified 02/19/22 13:11 tramadol Allergy Severe Anaphylaxis Verified 02/19/22 13:11 venlafaxine [From Effexor] Allergy Severe Anaphylaxis Verified 02/19/22 13:11 Assessment & Plan Assessment & Plan (1) Major depressive disorder, recurrent severe without psychotic features: Status: Acute Code(s): F33.2 - Major depressive disorder, recurrent severe without psychotic features Plan 02/20: trial of stimulant. asking for D/C friday. T/C MAOI rachael leon. T/C ECT. 02/21: continue methylphenidate 5 mg PO Daily. D/C tomorrow. I spent ___25___ minutes with the patient and/or on the patient floor today, greater than?50% of which was spent counseling/coordinating care. Reason for contiued inpatient stay Substantial Risk for: harm to self, inability to function and rapid decompensation
[2022-02-21 21:30] VITALS: BP 100/56; PULSE 94; RESP 18; TEMP 36.4; O2SAT 95
[2022-02-22 06:00] VITALS: BP 114/66; PULSE 88; RESP 18; TEMP 36.6; O2SAT 97
[2022-02-22] MEDS: Losartan Potassium 50 MG TABLET 100 MG PO (09:46)
[2022-02-22] MEDS: hydroCHLOROthiazide 25 MG TABLET PO (09:46)
[2022-02-22] MEDS: Methylphenidate HCl 5 MG TABLET PO (09:46)
[2022-02-22] MEDS: Montelukast Sodium 10 MG TABLET PO (09:47)
[2022-02-22] MEDS: Pravastatin Sodium 80 MG TABLET PO (09:47)
[2022-02-22] MEDS: Omeprazole 40 MG CAPSULE.DR PO (09:47)
[2022-02-22] MEDS: Vortioxetine Hydrobromide 20 MG TABLET PO (09:47)
[2022-02-22] MEDS: amLODIPine Besylate 5 MG TABLET PO (09:47)
[2022-02-22] MEDS: QUEtiapine Fumarate 100 MG TABLET PO (09:47)
--- NOTE | 2022-02-22 10:37 | P.DS_ITS ---
DS: Providers Provider Date of Service: 02/22/22 Date of admission: 02/19/22 17:36 Primary care physician: Randolph Quintanilla MD DS: Diagnosis Discharge Diagnosis (1) Major depressive disorder, recurrent severe without psychotic features: Status: Acute DS: Medications Discharge Medications Home Medications: Home Medications Medication Instructions Recorded Confirmed montelukast 10 mg tablet 10 mg PO DAILY 07/25/20 02/19/22 amlodipine 5 mg tablet 1 tab PO DAILY 02/19/22 02/19/22 hydrochlorothiazide 25 mg tablet 1 tab PO DAILY 02/19/22 02/19/22 lorazepam 1 mg tablet 1 tab PO TID 02/19/22 02/19/22 losartan 100 mg tablet 1 tab PO DAILY 02/19/22 02/19/22 omeprazole 40 mg capsule,delayed 1 cap PO DAILY 02/19/22 02/19/22 release pravastatin 80 mg tablet 1 tab PO DAILY 02/19/22 02/19/22 quetiapine 100 mg tablet 1 tab PO BID 02/19/22 02/19/22 vortioxetine 20 mg tablet 1 tab PO DAILY 02/19/22 02/19/22 (Trintellix) Previous Rx's Medication Instructions Recorded methylphenidate HCl 5 mg tablet 5 mg PO QAM 30 days #30 tabs 02/21/22 Mental Status Exam Mental Status Exam Narrative: adequately dressed and groomed. cooperative, general PMR, perhaps. speech nml rate, amount, loudness, latency. decreased tone. thoughts linear and logical. affect constricted, hypo-intense, non-labile. mood better. no SI/HI/AVH. Data Data Completed and Pending Completed studies during hospitalization [Text1]: 02/19/22 02/19/22 02/19/22 13:54 13:54 13:54 WBC 6.3 RBC 4.62 Hgb 13.4 Hct 39.8 MCV 86.1 MCH 29.0 MCHC 33.7 RDW 13.2 Plt Count 264 MPV 8.6 L Immature Gran % (Auto) 0.5 H Neut % (Auto) 68.3 Lymph % (Auto) 22.8 [place] % (Auto) 7.1 Eos % (Auto) 1.0 Baso % (Auto) 0.3 Lymph # (Auto) 1.4 [place] # (Auto) 0.5 Eos # (Auto) 0.1 Baso # (Auto) 0.0 Abs Immat Gran (auto) 0.03 Absolute Neuts (auto) 4.3 Absolute Nucleated RBC 0.000 Nucleated RBC % (auto) 0.0 Sodium 141 Potassium 3.9 Chloride 102 Carbon Dioxide 27 Anion Gap 16 BUN 11 Creatinine 0.82 Estim Creat Clear Calc 70.0 Estimated GFR > 60 Random Glucose 135 H Fasting Glucose Calcium 9.5 Total Bilirubin 1.2 H Direct Bilirubin 0.4 AST 13 ALT 12 Alkaline Phosphatase 55 Total Protein 6.7 Albumin 4.3 Triglycerides Cholesterol LDL Cholesterol, Calc HDL Cholesterol Urine Color Urine Appearance Urine pH Ur Specific [place] Urine Protein Urine Glucose (UA) Urine Ketones Urine Blood Urine Nitrite Ur Leukocyte Esterase Urine Opiates Screen Urine Fentanyl Screen Ur Barbiturates Screen Ur Phencyclidine Scrn Ur Amphetamines Screen U Benzodiazepines Scrn Urine Cocaine Screen U Marijuana (THC) Screen COVID-19 (GABRIEL) Negative COVID-19 Clin Com See Note 02/19/22 02/19/22 02/20/22 13:54 13:54 08:56 WBC RBC Hgb Hct MCV MCH MCHC RDW Plt Count MPV Immature Gran % (Auto) Neut % (Auto) Lymph % (Auto) [place] % (Auto) Eos % (Auto) Baso % (Auto) Lymph # (Auto) [place] # (Auto) Eos # (Auto) Baso # (Auto) Abs Immat Gran (auto) Absolute Neuts (auto) Absolute Nucleated RBC Nucleated RBC % (auto) Sodium 139 Potassium 4.1 Chloride 100 Carbon Dioxide 31 H Anion Gap 12 BUN 15 Creatinine 0.82 Estim Creat Clear Calc 69.4 Estimated GFR > 60 Random Glucose Fasting Glucose 112 H Calcium 9.7 Total Bilirubin 0.8 Direct Bilirubin AST 10 ALT 11 Alkaline Phosphatase 48 Total Protein 6.4 L Albumin 4.2 Triglycerides 89 Cholesterol 231 LDL Cholesterol, Calc 147 HDL Cholesterol 67 Urine Color Yellow Urine Appearance Clear Urine pH 7.5 Ur Specific [place] <= 1.005 Urine Protein Negative Urine Glucose (UA) Negative Urine Ketones Negative Urine Blood Negative Urine Nitrite Negative Ur Leukocyte Esterase Negative Urine Opiates Screen Not Detected Urine Fentanyl Screen Not Detected Ur Barbiturates Screen Not Detected Ur Phencyclidine Scrn Not Detected Ur Amphetamines Screen Not Detected U Benzodiazepines Scrn Not Detected Urine Cocaine Screen Not Detected U Marijuana (THC) Screen Not Detected COVID-19 (GABRIEL) COVID-19 Clin Com DS: Summary Hospital Course Hospital Course: per 02/20 admission note: pt self-presented to ED c/o depression with SI over the past month.? she reported passive SI to crisis staff.? she stated that she had been living in a congregate living arrangement from 11/2020 until 01/18/2022 and that since leaving she has been experiencing depression and now SI.? she was forcecd to move out for financial reasons.? she has been experiencing sleep/wake cycle disturbance, hyperphagia, anergy and amotivation, poor concentration, anhedonia.? she had a substantial suicide attempt via overdose on her prescribed medications, with low rescue factor, and she ended up in the ICU for some time and then had a psych admission at [facility].? when she discharged from there she entered the congregate living environment which she apparently found quite helpful for her mental health.? after she moved out she began to decompensate severely.? she reported she has tried ketamine IV, which was not helpful.? she is planning on a course of intranasal ketamine soon.? she did TMS at [facility] last spring with some benefit.? she has not tried ECT.? she reports trials on numerous SSRIs and SNRIs, as well as seroquel currently and lamictal in the recent past.? also TCAs.? she does not believe she has tried an MAOI; she was provided patient medication education by nursing staff for MAOIs today at MD request.? stimulants were also discussed as the most powerful mood-elevating agents at our disposal.? she agreed to trial of methylphenidate 5 mg NOW.? discussed that if she were to decide to do the MAOI she would need to have a 2 week washout period for her trintellix, for one.? she reports solitude and lack of social structure as the most problematic aspects of her life and the best aspects of [facility] (long term community where she lived over the past year).? will engage SW to [employer] activities which may supply such needs with less cost than [facility]. Past Psychiatric History: h/o 3 prior psych hosps. no h/o SIB h/o one SA, september 2020, via overdose, low rescue factor. h/o TMS at [facility] spring 2020. outpt Tx intermittently for 40 years. Medical Evaluation Reviewed: Yes [facility] Medical History? Asthma Diverticulosis HTN (hypertension) Hypercholesterolemia Major depressive disorder Vocal cord dysfunction Surgical History? H/O brain surgery History of biopsy of temporal artery History of colostomy History of colostomy reversal History of rectal surgery History of tonsillectomy History of total hysterectomy Hx of colonoscopy Family History: PATIENT'S FATHER WAS ALCOHOLIC, MOTHER ALCOHOLIC and depression.? QUESTION OF BIPOLAR DISORDER A BROTHER WHO WAS ABUSIVE. Social History: PATIENT IS BUT FROM HER FOR MANY YEARS.? SHE OBTAINED A SOCIAL WORK DEGREE FROM [employer] SHE HAS TO WORK FOR [email or web address] IN [place].? SHE HAS 2 ADOPTED SONS, 21 and 23 yo currently.? SHE HAS A CLOSE GROUP OF FRIENDS AND A GOOD SUPPORT SYSTEM.? NOT CURRENTLY DATING.? she lives in the home with her estranged and they cohabit as friends. Substance History: h/o alcohol use disorder, sober for 20 yrs.? h/o AA attendance. Trauma History: THE HISTORY OF CHILDHOOD TRAUMA 02/21: calm, cooperative.? feeling kind of flat, but no anxiety today.? reports yesterday after methylphenidate she was talkative and notably not depressed. ? she plans to discharge tomorrow to outpt care and would like to continue trial of stimulant.? no problematic side effects.? per staff, c/o dep/anx.? easily engaged.? interested in PHP.? attending to ADLs. 02/22: continue improved in mood and energy. discharged to outpt care per her request. PHP referral in place. Precis: 02/20: trial of stimulant. asking for D/C friday. T/C MAOI outpt - [facility]. T/C ECT. 02/21: continue methylphenidate 5 mg PO Daily. D/C tomorrow. 02/22: mood and energy remain improved on stimulant. discharged to outpt care as per her request. Time Spent with Patient Time attestation: Total time spent providing and/or coordinating discharge services: Time spent: Greater than 30 minutes Discharge Plan Discharge Anticipated Discharge Date/Time: 02/22/22 11:00 Patient Disposition: Home, Self-Care Discharge Diagnosis: Major Depressive Disorder, Recurrent, Severe Referrals: Therapist: Klarissa Fuller [Other] - 1 Week (Please follow-up with your therapist for your next appointment.) Psychiatrist: Frank Guevara [Other] - 02/26/22 1:20 pm (IN OFFICE) [facility]: Partial Program [Other] - 03/12/22 11:00 am (The date listed is an intake appointment for partial. Suzie Chen will call you to follow-up on Friday02/25/2022.) Randolph Quintanilla MD [Primary Care Provider] - 1 Week Discharge Medications: New methylphenidate HCl 5 mg Tablet 5 mg PO QAM 30 Days Qty: 30 0RF Rx Instructions: Partial Fill upon patient request. Continued amlodipine 5 mg tablet 1 tab PO DAILY omeprazole 40 mg capsule,delayed release(DR/EC) 1 cap PO DAILY quetiapine 100 mg tablet 1 tab PO BID pravastatin 80 mg tablet 1 tab PO DAILY hydrochlorothiazide 25 mg tablet 1 tab PO DAILY lorazepam 1 mg tablet 1 tab PO TID losartan 100 mg tablet 1 tab PO DAILY Trintellix 20 mg tablet 1 tab PO DAILY montelukast 10 mg tablet 10 mg PO DAILY Discharge Orders: Discharge Order (Routine); Ordered 02/22/22 Ordered By: Walker Palacios Diet: Advance to usual diet Activity on Discharge: As tolerated Stand Alone Forms: Patient Portal Discharge page, Community Support Care Plan Goals: remain safe and stable in the outpatient treatment setting Health Concerns: none Plan of Treatment: take medications as prescribed, attend appointments as scheduled Assessment: not at imminent risk of harm to self or others Discharge Date/Time: 02/22/22 11:29
== END 2022-02-22 11:29 | disposition home or self-care (01) | DRG 751 ==
LOC: HO.ED 16:20 → HO.PADLT16 17:43
PROVIDERS: Psychiatry & Neurology Psychiatry; Student in an Organized Health Care Education/Training Program; Admitting Provider Psychiatry & Neurology Psychiatry; Emergency Provider Emergency Medicine; PCP Internal Medicine; Visit Provider Psychiatry & Neurology Psychiatry
DX: F33.2 Major depressive disorder, recurrent severe without psychotic features (principal); R45.851 Suicidal ideations; E78.00 Pure hypercholesterolemia, unspecified; J45.909 Unspecified asthma, uncomplicated; K57.90 Diverticulosis of intestine, part unspecified, without perforation or abscess without bleeding; Z20.822 Contact with and (suspected) exposure to COVID-19; Z88.5 Allergy status to narcotic agent; Z88.6 Allergy status to analgesic agent; Z88.8 Allergy status to other drugs, medicaments and biological substances; Z79.899 Other long term (current) drug therapy
CPT/HCPCS: 36415; 80048; 80053; 80061; 80076; 80307; 81003; 85025; 87635; 93005; 99285

== ENCOUNTER 2022-04-05 10:30 | Outpatient (RCR) | payer OTHER, SELFPAY ==
--- NOTE | 2022-03-13 10:27 | HO.PS.ADMBH ---
[facility] Date of Service: 03/13/22 Chief Complaint: depression Sources of Information: patient interviewed, chart reviewed and crisis/core team assessment reviewed [facility] Medical Problems Affecting Mental Status: No Narrative: Patient is a 62-year-old but female, referred to [facility] as a step-down from [facility] M3 psychiatric unit. Patient had been admitted for increased symptoms of depression, anxiety, chronic, passive SI over the past month. Reports today has been thinking of overdosing on her medications, although no intent to act on this plan. Currently staying with her ex-spouse, and son. See clinician integrated assessment note for full details. Precipitants to most current episode after moving out of assisted living facility in 12/2021, due to cost. Had been living there after being hospitalized for SA in, when she was admitted to ICU after OD on medications. She found the structure of the assisted living facility helpful, and made many friends there. She has been visiting there frequently since leaving, and would like to return to live there, if she can manage the financial costs. Started therapy age 11 for depression. History of childhood trauma. Has been in treatment intermittently for 40 years. Tried [place] [facility]. Attended AA for many years. Has tried hypnosis. Has tried IV ketamine, and is currently considering trial of esketamine. Reports a long history of SI, with passive planning. States that has ruminating thoughts of SI, usually negative self-talk about ending my life . States the she currently has no plan or intent to harm herself in any way, and feels safe. Patient reports that her days currently lack structure, and she feels hopeless/helpless at times. She hopes to work on adding structure to her day / life while in [facility], practicing healthy coping skills, and is looking forward to group participation. Past Psychiatric History: Recent IPLOC on M303/12. Multiple medication trials. h/o 3 prior psych hosps. no h/o SIB h/o one SA, september 2020, via overdose, low rescue factor. h/o TMS at [facility] spring [place]. outpt Tx intermittently for 40 years. Medical Evaluation Reviewed: Yes [facility] Medical History Asthma Diverticulosis HTN (hypertension) Hypercholesterolemia Major depressive disorder Vocal cord dysfunction Surgical History (Reviewed 11/28/22 @ 08:19 by Holly Montes H/O brain surgery History of biopsy of temporal artery History of colostomy History of colostomy reversal History of rectal surgery History of tonsillectomy History of total hysterectomy Hx of colonoscopy Family History: PATIENT'S FATHER WAS ALCOHOLIC, MOTHER ALCOHOLIC and depression. QUESTION OF BIPOLAR DISORDER A BROTHER WHO WAS ABUSIVE. Social History: PATIENT IS BUT FROM HER FOR MANY YEARS. SHE OBTAINED A SOCIAL WORK DEGREE FROM [employer] SHE HAS TO WORK FOR [employer] IN [place]. SHE HAS 2 ADOPTED SONS, 21 and 23 yo currently. SHE HAS A CLOSE GROUP OF FRIENDS AND A GOOD SUPPORT SYSTEM. NOT CURRENTLY DATING. she lives in the home with her estranged and they cohabit as friends. Substance History: Remote history alcohol use disorder, last consumed 1992. Trauma History: THE HISTORY OF CHILDHOOD TRAUMA Meds/Allergies Meds Home Medications Medication Instructions Recorded Confirmed Type montelukast 10 mg tablet 10 mg PO DAILY 07/25/20 03/13/22 History amlodipine 5 mg tablet 1 tab PO DAILY 02/19/22 03/13/22 History hydrochlorothiazide 25 mg tablet 1 tab PO DAILY 02/19/22 03/13/22 History lorazepam 1 mg tablet 1 tab PO TID 02/19/22 03/13/22 History losartan 100 mg tablet 1 tab PO DAILY 02/19/22 03/13/22 History omeprazole 40 mg capsule,delayed 1 cap PO DAILY 02/19/22 03/13/22 History release pravastatin 80 mg tablet 1 tab PO DAILY 02/19/22 03/13/22 History quetiapine 100 mg tablet 1 tab PO BID 02/19/22 03/13/22 History vortioxetine 5 mg tablet 5 mg PO DAILY 03/13/22 03/13/22 History (Trintellix) Allergies Allergies Allergy/AdvReac Type Severity Reaction Status Date / Time ibuprofen Allergy Severe Anaphylaxis Verified 02/19/22 13:11 prednisone Allergy Severe Anaphylaxis Verified 02/19/22 13:11 sertraline [From Zoloft] Allergy Severe Anaphylaxis Verified 02/19/22 13:11 tramadol Allergy Severe Anaphylaxis Verified 02/19/22 13:11 venlafaxine [From Effexor] Allergy Severe Anaphylaxis Verified 02/19/22 13:11 Mental Status Exam Mental Status Exam Narrative: Well-developed, overweight female, in NAD. Ambulation/posture normal. No tics or tremors, no abnormal movements. No perceptual disturbances noted. Patient Appearance: Appropriate Patient Orientation: Person, Place, Time and Situation Level of Consciousness: Appropriate Patient Behavior: Appropriate and Good Eye Contact Mood Description: Depressed Affect Description: Depressed, Blunted and Flat Patient Cognition Impaired: No Ability to Follow Directions: Excellent Speech Pattern: Clear and Appropriate Hallucinations: None Delusions: Not Present Thought Process: Intact Thought Content: positive for Suicidal Ideation (Plan to overdose on meds, no intent. ) Depressive Symptoms: Diff. Making Decisions, Loss of Int. in Activity, Feelings of Worthlessness, Hopelessness, Unhappiness, Increased Fatigue, Thoughts of /Suicide, Loss of Energy and Difficulty Concentrating Judgement: Fair Assessment & Plan Assessment & Plan (1) Major depressive disorder, recurrent severe without psychotic features: Status: Acute Code(s): F33.2 - Major depressive disorder, recurrent severe without psychotic features Assessment and Plan: Patient with long history major depressive disorder, multiple treatments, including multiple medication trials, TMS, ketamine. Presents to [facility] as a step-down from inpatient stay. Hopes to gain structure. Continues with passive SI at this time, reports a plan would be to overdose on her medications, but that she has no intent at this time. Patient has several serious suicide attempts in her history, including 1 in 2020 that required ICU level of care. Patient was cooperative during interview, however presented with blunted, flat affect. Has had recent medication changes while inpatient, including addition of methylphenidate 5 mg. Reports that she is finding this medication helpful. Patient has outpatient psychiatrist and therapist. We discussed her current medication regimen, with plan to make no changes at this time, as she has just had recent change. She was in agreement with this plan. She was able to state that she feels safe at this time. She does have a long history of alcohol use disorder. Has been stable for 29 years. Reports that she has had thoughts recently to drink, but did not act on them. We discussed COD group as an option, she stated she is interested, as she used to attend AA years ago, and found it helpful. (2) Alcohol use disorder, moderate, in sustained remission: Status: Acute Code(s): F10.21 - Alcohol dependence, in remission Plan 1. Continue with current [facility] plan of care. 2. Continue with current medication regimen as prescribed. 3. Follow-up as per protocol. Patient educated on: diagnosis, medication risk/benefits, substance abuse and therapeutic strategies Informed Consent: understands Reason for continued partial hosp. stay Substantial Risk for: harm to self, inability to function, rapid decompensation and med/psych decompensation Certification I certify that partial hospital treatment is medically necessary due to the symptoms and problems resulting from the patient's mental illness and the failure to treat the patient at the partial hospital level of care would likely result in the patient requiring inpatient psychiatric care which could not be prevented at a less intensive level of care.
--- NOTE | 2022-03-13 13:27 | PC.ADMIT ---
Patient referred to [facility] by [facility] inpatient behavioral health unit where patient was admitted for 3 days d/t severe depression and anxiety with chronic passive SI for over the past month. Patient did have a serious suicide attempt in 2020 overdosing on her prescription medications and was admitted to [facility] ICU. Patient stated to this typewriter mechanic that she took her prescription medications while in the parking lot of [facility] and stated it was divine intervention as a family member found her in the parking lot. Patient presented with depressed mood and anxious affect. Reports passive SI, no plan or intent to kill herself. Patient is oriented x4. She was engagable, calm and cooperative. Patient's medications reconciled with patient and inpatient discharge paperwork. Patient reports Dr. Guevara is tapering her off Trintellex an is going to start Pristique. Patient reports taking medications as prescribed. Patient given a copy of her safety plan if needed. See nursing assessment for more information.
[2022-03-13 13:30] VITALS: BP 104/62; PULSE 96; TEMP 36.4
[2022-03-13 13:32] VITALS: BMI 39.6
[2022-03-13 14:05] LABS: Amphetamine Screen Urine Not Detected (Not Detect); Barbiturates, Urine Not Detected (Not Detect); Benzodiazepines Screen Urine Not Detected (Not Detect); Cannabinoid Screen Urine Not Detected (Not Detect); Cocaine Screen Urine Not Detected (Not Detect); Fentanyl, urine Not Detected (Not Detect); Opiate Screen Urine Not Detected (Not Detect); Phencyclidine Screen Urine Not Detected (Not Detect)
--- NOTE | 2022-03-19 15:24 | HO.PHPPROGNO ---
Subjective Subjective Date of Service: 03/19/22 Reason For Visit: depression Medical Problems Affecting Mental Status: No Interim History: Describes mood today as ?I have been better, and I have been worse ?. Continues with depressed mood, some slight improvement. Continues with passive SI, no intent or plan at this time. No safety concerns. Reports methylphenidate was helpful at 1st, would like to discuss increase of dose. Tapering down off Trintellix at this time, states that plan is to start Pristiq next week. Finding PHP groups helpful, states that she was able to open up this morning and discuss her feelings. Medication Compliance: Yes Side effects from medications: No Attending Groups: Yes Review of Systems Acute medical concerns: No Medical Review of Systems: unchanged Review of Systems Review of Systems Yes all other systems are reviewed and are negative Constitutional: Reports no additional constitutional complaints Mental Status Exam Mental Status Exam Narrative: NAD Patient Appearance: Appropriate Patient Orientation: Person, Place, Time and Situation Level of Consciousness: Appropriate Patient Behavior: Appropriate, Cooperative and Good Eye Contact Mood Description: Depressed Affect Description: Depressed Patient Cognition Impaired: No Ability to Follow Directions: Excellent Speech Pattern: Clear and Appropriate Hallucinations: None Delusions: Not Present Thought Process: Intact Thought Content: positive for Suicidal Ideation (passive, no intent/plan) Depressive Symptoms: Diff. Making Decisions, Loss of Int. in Activity, Feelings of Worthlessness, Unhappiness, Increased Fatigue, Thoughts of /Suicide and Difficulty Concentrating Judgement: Fair Diagnostics Vital Signs (24Hr): BMI result Body Mass Index 39.6 Assessment & Plan Assessment & Plan (1) Major depressive disorder, recurrent severe without psychotic features: Status: Acute Code(s): F33.2 - Major depressive disorder, recurrent severe without psychotic features Assessment and Plan: Continues with depressed mood, although slightly improving. Found energy and motivation this morning to wash her hair. Continues with passive SI, no intent or plan. Describes this as shift more to a thought that if she became terminally ill, or was in a motor vehicle accident that was not her fault, rather than thinking of overdosing on her medications. Reports that she feels safe at this time, with no intent to harm herself in any way. Has been forgetful regarding mid day doses of Seroquel and lorazepam. Discussed adding a dose of each to carry in coat pocket. Was able to smile briefly during encounter. Reports finding groups to be helpful, states that she is beginning to open up in share during groups. Discussed current medications in detail. Currently tapering down off Trintellix, believes that will be done this week with dosing. States that she will then begin to to take Pristiq. Reports that she found methylphenidate helpful at 1st, believe she may need an increase. We discussed the medication, including target symptoms it can address. Was agreeable to continue at current dose for next several days, as her symptoms are beginning to improve. Plan 1. Continue with current [facility] plan of care. 2. Continue with current medication regimen as currently prescribed by outpatient provider. 3. Obtain collateral, confer with outpatient provider. 4. Follow-up as per protocol. Patient educated on: diagnosis, medication risk/benefits and therapeutic strategies Informed Consent: understands Reason for contiued partial hosp. stay Substantial Risk for: harm to self, inability to function, rapid decompensation and med/psych decompensation Certification I certify that partial hospital treatment is medically necessary due to the symptoms and problems resulting from the patient's mental illness and the failure to treat the patient at the partial hospital level of care would likely result in the patient requiring inpatient psychiatric care which could not be prevented at a less intensive level of care. I spent minutes with the patient and/or on the patient floor today, greater than?50% of which was spent counseling/coordinating care. Discharge Plan Discharge Attending provider: [facility] Medications: No Action amlodipine 5 mg tablet 1 tab PO DAILY omeprazole 40 mg capsule,delayed release(DR/EC) 1 cap PO DAILY quetiapine 100 mg tablet 1 tab PO BID pravastatin 80 mg tablet 1 tab PO DAILY hydrochlorothiazide 25 mg tablet 1 tab PO DAILY lorazepam 1 mg tablet 1 tab PO TID losartan 100 mg tablet 1 tab PO DAILY methylphenidate HCl 5 mg Tablet 5 mg PO QAM 30 Days Qty: 30 0RF Rx Instructions: Partial Fill upon patient request. Trintellix 5 mg Tablet 5 mg PO DAILY Label Comments: Patient stated Dr. Guevara is tapering her off Trintellix and adding Pristique. montelukast 10 mg tablet 10 mg PO DAILY Stand Alone Forms: Patient Portal Discharge page
--- NOTE | 2022-03-21 14:49 | HO.PHPIOP ---
Case opened in treatment team.
--- NOTE | 2022-03-26 10:09 | HO.PHPPROGNO ---
Subjective Subjective Date of Service: 03/26/22 Reason For Visit: depression Medical Problems Affecting Mental Status: No Interim History: Describes mood as flat, anxious . Depresssed. No real benefit reported with increased dose Ritalin. Reports increased anxiety, does not believe related to medications. Started new medication Pristiq several days ago. Sleep good. No concerns with appetite. Continues with poor focus, restless, feeling uncomfortable unless in bed at night where she know she is safe. No SI at this time, no safety concerns. Medication Compliance: Yes Side effects from medications: No Attending Groups: Yes Review of Systems Acute medical concerns: No Medical Review of Systems: unchanged Review of Systems Review of Systems Yes all other systems are reviewed and are negative Constitutional: Reports no additional constitutional complaints Mental Status Exam Mental Status Exam Narrative: NAD Patient Appearance: Appropriate Patient Orientation: Person, Place, Time and Situation Level of Consciousness: Appropriate and Restless Patient Behavior: Appropriate, Cooperative and Good Eye Contact Mood Description: Depressed, Anxious and Flat Affect Description: Depressed and Anxious Patient Cognition Impaired: No Ability to Follow Directions: Good Speech Pattern: Clear, Appropriate and Soft-Spoken Memory Description: Intact Hallucinations: None Delusions: Not Present Thought Process: Intact and Rumination Thought Content: positive for Intact Depressive Symptoms: Increased Anxiety, Diff. Making Decisions, Loss of Int. in Activity, Feelings of Worthlessness, Isolating-Friends/Family, Unhappiness, Increased Fatigue, Thoughts of /Suicide and Difficulty Concentrating Judgement: Fair Diagnostics Vital Signs (24Hr): BMI result Body Mass Index 39.6 Assessment & Plan Assessment & Plan (1) Major depressive disorder, recurrent severe without psychotic features: Status: Acute Code(s): F33.2 - Major depressive disorder, recurrent severe without psychotic features Assessment and Plan: Describes mood as flat, anxious . Depression sx continue without much improvement, except no SI. No safety concern at this time. No real benefit reported with increased dose Ritalin. Has been taking increased dose almost 1 week. Reports increased anxiety, does not believe related to medications. Continues with rumination regarding former assisted living facility. States that that is really the only place that she felt safe. Continues to visit there on a regular basis, although not staying as long, due to feeling on welcome at times. Feeling overwhelmed at times, not sure how she will spend her days. 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 Started new medication Pristiq several days ago. Sleep good. No concerns with appetite. Continues with poor focus, restless, feeling uncomfortable unless in bed at night where she know she is safe. (2) Anxiety: Status: Acute Code(s): F41.9 - Anxiety disorder, unspecified Plan 1. Continue with current [facility] plan of care. 2. Continue with current medication regimen as prescribed. Outpatient psychiatrist has recently started new medication several days ago, Pristiq. 3. Follow-up as per protocol. Patient educated on: diagnosis and therapeutic strategies Informed Consent: understands Reason for contiued partial hosp. stay Substantial Risk for: harm to self, inability to function, rapid decompensation and med/psych decompensation Certification I certify that partial hospital treatment is medically necessary due to the symptoms and problems resulting from the patient's mental illness and the failure to treat the patient at the partial hospital level of care would likely result in the patient requiring inpatient psychiatric care which could not be prevented at a less intensive level of care. I spent minutes with the patient and/or on the patient floor today, greater than?50% of which was spent counseling/coordinating care. Discharge Plan Discharge Attending provider: [facility] Geiger Medications: New methylphenidate HCl [Ritalin] 10 mg tablet 10 mg PO DAILY 14 Days Qty: 14 0RF Rx Instructions: Partial Fill upon patient request. Discontinued methylphenidate HCl 5 mg Tablet 5 mg PO QAM 30 Days Qty: 30 0RF Rx Instructions: Partial Fill upon patient request. No Action amlodipine 5 mg tablet 1 tab PO DAILY omeprazole 40 mg capsule,delayed release(DR/EC) 1 cap PO DAILY quetiapine 100 mg tablet 1 tab PO BID pravastatin 80 mg tablet 1 tab PO DAILY hydrochlorothiazide 25 mg tablet 1 tab PO DAILY lorazepam 1 mg tablet 1 tab PO TID losartan 100 mg tablet 1 tab PO DAILY desvenlafaxine succinate [Pristiq] 25 mg Tablet Extended Release 24 Hr 25 mg PO DAILY Label Comments: Patient tapered off Trintellix and started Pristiq. montelukast 10 mg tablet 10 mg PO DAILY Stand Alone Forms: Patient Portal Discharge page
--- NOTE | 2022-04-05 14:44 | P.PNPSP_ITS ---
Subjective Subjective Date of Service: 04/05/22 Reason For Visit: depression Medical Problems Affecting Mental Status: No Interim History: Less depressed, less anxious. Overall feels her symptoms are improving. No SI, feels safe. Finding the Ritalin 10 mg helpful, states that she feels it is helping with her anxiety 2. 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 Medication Compliance: Yes Side effects from medications: No Attending Groups: Yes Review of Systems Acute medical concerns: No Medical Review of Systems: unchanged Review of Systems Review of Systems Yes all other systems are reviewed and are negative Constitutional: Reports no additional constitutional complaints Mental Status Exam Mental Status Exam Narrative: NAD Patient Appearance: Appropriate Patient Orientation: Person, Place, Time and Situation Level of Consciousness: Appropriate Patient Behavior: Appropriate, Cooperative and Good Eye Contact Mood Description: Depressed (less ) and Anxious (less) Affect Description: Appropriate Patient Cognition Impaired: No Ability to Follow Directions: Excellent Speech Pattern: Clear, Appropriate and Soft-Spoken Memory Description: Intact Hallucinations: None Delusions: Not Present Thought Process: Intact Thought Content: positive for Intact Judgement: Good Diagnostics Vital Signs (24Hr): BMI result Body Mass Index 39.6 Assessment & Plan Assessment & Plan (1) Major depressive disorder, recurrent severe without psychotic features: Status: Acute Code(s): F33.2 - Major depressive disorder, recurrent severe without psychotic features Assessment and Plan: Patient reports feeling improved regarding depression and anxiety symptoms. No SI, no safety concerns. Feels stable at this time. 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 Feels current medication regimen is working, no changes. Stable for discharge. (2) Anxiety: Status: Acute Code(s): F41.9 - Anxiety disorder, unspecified Plan 1. Patient appears stable for discharge from [facility] at this time. 2. Patient to follow-up with outpatient providers going forward. Patient educated on: diagnosis, medication risk/benefits and therapeutic strategies Informed Consent: understands Reason for contiued partial hosp. stay Substantial Risk for: stable for discharge Certification I certify that partial hospital treatment is medically necessary due to the symptoms and problems resulting from the patient's mental illness and the failure to treat the patient at the partial hospital level of care would likely result in the patient requiring inpatient psychiatric care which could not be prevented at a less intensive level of care. Total time managing care of this patient today __20__ minutes. Discharge Plan Discharge Attending provider: [facility] Medications: New methylphenidate HCl [Ritalin] 10 mg tablet 10 mg PO DAILY Qty: 30 0RF Rx Instructions: Partial Fill upon patient request. Discontinued methylphenidate HCl 5 mg Tablet 5 mg PO QAM 30 Days Qty: 30 0RF Rx Instructions: Partial Fill upon patient request. No Action amlodipine 5 mg tablet 1 tab PO DAILY omeprazole 40 mg capsule,delayed release(DR/EC) 1 cap PO DAILY quetiapine 100 mg tablet 1 tab PO BID pravastatin 80 mg tablet 1 tab PO DAILY hydrochlorothiazide 25 mg tablet 1 tab PO DAILY lorazepam 1 mg tablet 1 tab PO TID losartan 100 mg tablet 1 tab PO DAILY desvenlafaxine succinate [Pristiq] 25 mg Tablet Extended Release 24 Hr 25 mg PO DAILY Label Comments: Patient tapered off Trintellix and started Pristiq. montelukast 10 mg tablet 10 mg PO DAILY Stand Alone Forms: Patient Portal Discharge page Patient Education: Depression (DC), Anxiety (GEN)
== END 2022-04-05 23:59 | disposition home or self-care (01) ==
LOC: HO.PHPA 10:30
PROVIDERS: Nurse Practitioner Psychiatric/Mental Health; Visit Provider Psychiatry & Neurology Psychiatry
DX: F33.2 Major depressive disorder, recurrent severe without psychotic features (principal); F41.9 Anxiety disorder, unspecified; F10.21 Alcohol dependence, in remission; Z79.899 Other long term (current) drug therapy
CPT/HCPCS: 80307; 90853

== ENCOUNTER 2022-08-09 15:36 | Emergency (ER) | payer OTHER, SELFPAY ==
--- NOTE | ~2022-08-09 | XR_ITS ---
EXAMINATION: XR CHEST CLINICAL INFORMATION: Pain COMPARISON: None available. TECHNIQUE: 2 views of the chest were obtained. FINDINGS: The lungs are well expanded. There is no focal consolidation, edema, or effusion. No pneumothorax. The cardiomediastinal silhouette is within normal limits. No acute osseous abnormality. XR/XR chest 2V IMPRESSION: No acute pulmonary findings.
--- NOTE | 2022-08-09 15:37 | ECG_ITS ---
Test Reason : chest pain Blood Pressure : / mmHG Vent. Rate : 084 BPM Atrial Rate : 084 BPM P-R Int : 150 ms QRS Dur : 076 ms QT Int : 364 ms P-R-T Axes : 027 012 010 degrees QTc Int : 430 ms Normal sinus rhythm Cannot rule out Anterior infarct (cited on or before 09-AUG-2022) Abnormal ECG When compared with ECG of 19-FEB-2022 17:22, No significant change was found Referred By: Generic ED Physician Electronically Signed By:JOHNY GALDAMEZ
[2022-08-09 15:38] VITALS: BP 131/68; PULSE 84; RESP 18; TEMP 36.7; O2SAT 99; BMI 41.2
--- NOTE | 2022-08-09 15:40 | ED.GENADULT ---
HPI - General Adult General Chief complaint: Arrhythmia/Palpitations Stated complaint: chest pain,tachycardia,sob,left arm tingling Related Data Home Medications Medication Instructions Recorded Confirmed montelukast 10 mg tablet 10 mg PO DAILY 07/25/20 03/13/22 amlodipine 5 mg tablet 1 tab PO DAILY 02/19/22 03/13/22 hydrochlorothiazide 25 mg tablet 1 tab PO DAILY 02/19/22 03/13/22 lorazepam 1 mg tablet 1 tab PO TID 02/19/22 03/13/22 losartan 100 mg tablet 1 tab PO DAILY 02/19/22 03/13/22 omeprazole 40 mg capsule,delayed 1 cap PO DAILY 02/19/22 03/13/22 release pravastatin 80 mg tablet 1 tab PO DAILY 02/19/22 03/13/22 quetiapine 100 mg tablet 1 tab PO BID 02/19/22 03/13/22 desvenlafaxine succinate 25 mg 25 mg PO DAILY 03/22/22 03/22/22 tablet,extended release 24 hr (Pristiq) Previous Rx's Medication Instructions Recorded methylphenidate HCl 10 mg tablet 10 mg PO DAILY #30 tabs 04/05/22 (Ritalin) Allergies Allergy/AdvReac Type Severity Reaction Status Date / Time ibuprofen Allergy Severe Anaphylaxis Verified 02/19/22 13:11 prednisone Allergy Severe Anaphylaxis Verified 02/19/22 13:11 sertraline [From Zoloft] Allergy Severe Anaphylaxis Verified 02/19/22 13:11 tramadol Allergy Severe Anaphylaxis Verified 02/19/22 13:11 venlafaxine [From Effexor] Allergy Severe Anaphylaxis Verified 02/19/22 13:11 [facility] Past Medical History Medical History Asthma Diverticulosis HTN (hypertension) Hypercholesterolemia Major depressive disorder Vocal cord dysfunction Surgical History H/O brain surgery History of biopsy of temporal artery History of colostomy History of colostomy reversal History of rectal surgery History of tonsillectomy History of total hysterectomy Hx of colonoscopy Family History Family History Mother No problems noted. Father No problems noted. Sister No problems noted. Sister No problems noted. Brother No problems noted. Social History Social History (Updated 02/19/22 @ 13:39 by Meaghan New DO) Household Members: Other Household Members Other:: Former partner Housing: House Do you presently have visiting nurse or other home services: No Alcohol intake: former Patient Tobacco Use Status: Former Tobacco user e-Cigarette/Vaping Use: Never Used Second Hand Smoke Exposure: No Substance Use Type: Crack/Cocaine, Marijuana and Opiates Advance Directives: No Advance Directives Information Provided: No service: No Sexual orientation: Lesbian/[place]/Homosexual Physical Exam ED Vital Signs: BMI result Body Mass Index 41.2 Course Course Course Narrative: LITA- 62-year-old female with past medical history significant for anxiety, obesity, depression presents for evaluation of palpitations and chest pressure that started while she was at work sitting at a desk. Plan for EKG, labs Medical Decision Making Lab Data 08/09/22 15:51 08/09/22 15:51 Labs: Lab Results 08/09/22 Range/Units 15:51 WBC 6.9 (4.8-10.8) X10*3/uL RBC 4.74 (4.20-5.50) X10*6/uL Hgb 13.5 (12.0-16.0) g/dl Hct 40.6 (37.0-47.0) % MCV 85.7 (80.0-98.0) fL MCH 28.5 (27.0-33.0) pg MCHC 33.3 (31.0-35.0) g/dl RDW 13.2 (11.0-16.0) % Plt Count 227 (160-400) X10*3/uL MPV 8.6 L (9.4-12.3) fL Immature Gran % (Auto) 0.3 (0.0-0.4) % Neut % (Auto) 62.0 (45-73) % Lymph % (Auto) 26.4 (20-40) % [place] % (Auto) 9.7 (2-11) % Eos % (Auto) 0.9 (0-4) % Baso % (Auto) 0.7 (0-2) % Lymph # (Auto) 1.8 (1.2-4.9) X10*3/uL [place] # (Auto) 0.7 (0.1-1.2) X10*3/uL Eos # (Auto) 0.1 (0.0-0.4) X10*3/uL Baso # (Auto) 0.1 (0.0-0.2) X10*3/uL Abs Immat Gran (auto) 0.02 (0.00-0.03) X10*3/uL Absolute Neuts (auto) 4.3 (2.0-8.3) x10*3/uL Absolute Nucleated RBC 0.000 (0.0-0.012) X10*3/uL Nucleated RBC % (auto) 0.0 (0.0-0.2) /100WBC PT 10.3 (10.0-13.1) SEC INR 0.9 (0.9-1.1) APTT 30.8 (26.0-36.4) SEC Sodium 137 (135-145) mmol/L Potassium 3.8 (3.3-5.1) mmol/L Chloride 100 (96-108) mmol/L Carbon Dioxide 29 (22-29) mmol/L Anion Gap 12 (12-20) BUN 13 (9-16) mg/dL Creatinine 0.98 (0.5-1.4) mg/dL Estim Creat Clear Calc 60.8 Estimated GFR 57 Random Glucose 121 H (60-115) mg/dL Calcium 9.2 (8.4-10.2) mg/dL Magnesium 2.1 (1.6-2.6) mg/dL Total Bilirubin 1.0 (0.0-1.0) mg/dL AST 12 (5-31) U/L ALT 9 (0-31) U/L Alkaline Phosphatase 60 (39-117) U/L Troponin I High Sens < 2.7 (<3.5-17.0) ng/L Total Protein 6.6 (6.5-8.0) g/dL Albumin 4.4 (3.5-5.0) g/dL Lipase 21 (8-78) U/L Discharge Plan Discharge Clinical Impression: Chest pain Patient Disposition: Elopement Prescriptions: No Action amlodipine 5 mg tablet 1 tab PO DAILY omeprazole 40 mg capsule,delayed release(DR/EC) 1 cap PO DAILY quetiapine 100 mg tablet 1 tab PO BID pravastatin 80 mg tablet 1 tab PO DAILY hydrochlorothiazide 25 mg tablet 1 tab PO DAILY lorazepam 1 mg tablet 1 tab PO TID losartan 100 mg tablet 1 tab PO DAILY desvenlafaxine succinate [Pristiq] 25 mg Tablet Extended Release 24 Hr 25 mg PO DAILY Patient Comments: Patient tapered off Trintellix and started Pristiq. methylphenidate HCl [Ritalin] 10 mg tablet 10 mg PO DAILY Qty: 30 0RF Rx Instructions: Partial Fill upon patient request. montelukast 10 mg tablet 10 mg PO DAILY Interventions: ED Discharge Assessment Last Done: 08/09/22 16:45 Discharge Date/Time: 08/09/22 16:46
[2022-08-09 15:54] LABS: MANUAL DIFF FLAG NO
--- NOTE | 2022-08-09 15:55 | MHC.EDTECH ---
PT EKG DONE AND WAS READ BY PROVIDER ,BLOOD DRAWN AND SEND TO LAB .
[2022-08-09 15:57] LABS: Basophils Absolute Auto 0.1 X10*3/uL (0.0-0.2); Basophils Percent Auto 0.7 % (0-2); Eosinophils Absolute Auto 0.1 X10*3/uL (0.0-0.4); Eosinophils Percent Auto 0.9 % (0-4); Hematocrit 40.6 % (37.0-47.0); Hemoglobin 13.5 g/dl (12.0-16.0); Imm Gran Abs Auto 0.02 X10*3/uL (0.00-0.03); Imm Gran Pct Auto 0.3 % (0.0-0.4); Lymphocytes Absolute Auto 1.8 X10*3/uL (1.2-4.9); Lymphocytes Percent Auto 26.4 % (20-40); Mean Corpuscular HGB Conc 33.3 g/dl (31.0-35.0); Mean Corpuscular Hemoglobin 28.5 pg (27.0-33.0); Mean Corpuscular Volume 85.7 fL (80.0-98.0); Mean Platelet Volume 8.6 fL (9.4-12.3); Monocytes Absolute Auto 0.7 X10*3/uL (0.1-1.2); Monocytes Percent Auto 9.7 % (2-11); Neutrophils Absolute Auto 4.3 x10*3/uL (2.0-8.3); Platelet Count 227 X10*3/uL (160-400); Red Blood Count 4.74 X10*6/uL (4.20-5.50); Red Cell Distribution Width 13.2 % (11.0-16.0); White Blood Count 6.9 X10*3/uL (4.8-10.8)
[2022-08-09 16:02] LABS: INTERNATIONAL NORM RATIO 0.9 (0.9-1.1); Prothrombin Time 10.3 SEC (10.0-13.1)
[2022-08-09 16:04] LABS: Partial Thromboplastin Time 30.8 SEC (26.0-36.4)
[2022-08-09 16:11] LABS: Alanine Aminotransferase 9 U/L (0-31); Albumin Level 4.4 g/dL (3.5-5.0); Alkaline Phosphatase 60 U/L (39-117); Anion Gap 12 (12-20); Aspartate Amino Transferase 12 U/L (5-31); Blood Urea Nitrogen 13 mg/dL (9-16); Calcium 9.2 mg/dL (8.4-10.2); Carbon Dioxide 29 mmol/L (22-29); Chloride 100 mmol/L (96-108); Creatinine Clr Calc Pharmacy 60.8; Estimated Glomerular Filt Rate 57; Glucose Random 121 mg/dL (60-115); Lipase 21 U/L (8-78); Magnesium 2.1 mg/dL (1.6-2.6); Potassium 3.8 mmol/L (3.3-5.1); Sodium 137 mmol/L (135-145); Total Protein 6.6 g/dL (6.5-8.0)
[2022-08-09 16:18] LABS: Troponin-I High Sensitivity < 2.7 ng/L (<3.5-17.0)
== END 2022-08-09 16:46 | disposition left against medical advice (07) ==
PROVIDERS: Physician Assistant; Emergency Provider Emergency Medicine; PCP Physician Assistant Medical
DX: R07.89 Other chest pain (principal); R00.0 Tachycardia, unspecified; R06.02 Shortness of breath; Z79.899 Other long term (current) drug therapy; Z87.891 Personal history of nicotine dependence
CPT/HCPCS: 36415; 71046; 80053; 83690; 83735; 84484; 85025; 85610; 85730; 93005; 99283